=== PATIENT | male | born 1950 | race Caucasian/White ===

== ENCOUNTER 2020-06-02 16:56 | Inpatient (IN) | payer MEDICARE, MEDICAID, SELFPAY ==
[2020-06-02] VITALS (13 sets, daily range): BP systolic 131–157; BP diastolic 78–99; PULSE 65–78; RESP 13–24; TEMP 36.4–36.8; O2SAT 92–98; BMI 29.2
--- NOTE | ~2020-06-02 | XR_ITS ---
EXAMINATION: XR chest 1V INDICATION: Leukocytosis and chest pain TECHNIQUE: AP view of the chest is obtained. COMPARISON: None available FINDINGS: There are airspace opacities of the left midlung zone and lung bases. No pleural effusion o r pneumothorax is identified. The cardiomediastinal silhouette is normal. IMPRESSION: 1. Airspace opacities of the left midlung zone and lung bases, likely pneumonia. Radiographic follow- up to resolution is recommended. Reviewed, dictated and finalized at location A. IMPRESSION: 1. Airspace opacities of the left midlung zone and lung bases, likely pneumonia . Radiographic follow-up to resolution is recommended.
--- NOTE | ~2020-06-02 | US_ITS ---
EXAMINATION: US right upper quadrant DATE: 06/04/2020 14:31 INDICATION: Pulmonary liver function tests TECHNIQUE: Multiple grayscale and Doppler ultrasound images of the abdomen were obtained. COMPARISON: None available FINDINGS: The pancreas is obscured by bowel gas. The liver is normal with normal echogenicity and ech otexture. No surface nodularity. Normal hepatopetal flow in the main portal vein. A stone is present in the nondistended gallbladder. There is no gallbladder wall thickening or pericholecystic fluid. Th e normal common bile duct measures 4 mm. There was no sonographic De La Torre sign. IMPRESSION: 1. Cholelithiasis without evidence of cholecystitis. 2. No sonographic correlate for the patient's symptoms. Reviewed, dictated and finalized at location A.
--- NOTE | 2020-06-02 16:54 | PC.NURSE ---
PATIENT SITTER DEN REQUESTING PT IN [facility] STAT, UNABLE TO GET IN HOUSE EKG, FULL SET OF VS, BLOOD, BELONGINGS LIST, OR SEOND IV ESTABLISHED PRIOR TO DEPARTURE. RAJ HORN HAS NOT SEEN OR ASSESSED PT PRIOR TO DEPARTURE. STEAM CRANE OPERATOR AND RAJ HORN AWARE THAT PT IS DEPARTING TO [facility] AT THIS TIME. PT SHAVED BY EMS UNISHEAR OPERATOR. STEAM CRANE OPERATORALIYA LAZO AWARE OF SITUATION.
[2020-06-02] MEDS: AMIODARONE 150 MG/D5W 100 ML 150 MG/100 ML BAG 600 MG IV CONT (17:45)
--- NOTE | 2020-06-02 17:53 | ECG_ITS ---
Measurements Intervals [place] Rate: 75 P: 51 PA: 188 QRS: 48 QRSD: 101 T: 70 QT: 404 QTc: 453 Interpretive Statements SINUS RHYTHM LOW QRS VOLTAGE IN PRECORDIAL LEADS ANTEROSEPTAL ST ELEVATION MYOCARDIAL INFARCT- ACUTE ABNORMAL ECG Electronically Signed On 06-03-2020 13:46:12 CDT by Shane Vazquez D.O.
--- NOTE | 2020-06-02 17:59 | WPDCARDPROC ---
Cardiac Cath Procedure Note Date of procedure:: 06/02/20 Performing physician:: Souleymane Cummings MD Indication:: acute anterior wall myocardial infarction Brief clinical history:: this is a 69-year-old male without previous documented history of coronary disease who experienced severe acute chest this evening while at work. ECG upon arrival and EMS was obviously abnormal for acute anterior wall infarction. Upon arrival to the Emergency the patient is having severe chest pain being brought immediately to the cardiac catheterization lab for angiography and revascularization Procedure Procedure performed:: emergency coronary angiography emergency PCI with drug-eluting stent to the proximal LAD Sedation/Medication given:: no sedation Access site:: right femoral artery Estimated blood loss:: 20-30 cc Procedure note:: patient was cardiac emergency setting described above. Right femoral triangle was prepared draped in usual fashion. Anesthesia provided with 1% lidocaine infiltrated locally. Using the modified Seldinger technique common femoral artery was punctured and 6 vascular sheath was placed. After this I engage inject the right coronary artery using a 5 Setswana JR4 catheter. I then engage inject the left coronary artery using a 6 Setswana CLS 3 5 guiding catheter. Following this the patient received 180 mg of Brilinta and he was systemically anticoagulated with Angiomax bolus and IV infusion. The patient received aspirin in the emergency department. Following PCI as detailed below the sheath was sutured into position the patient was taken to the ICU for post KS PCI recovery. The procedure was complicated by several episodes of rapid pulseless ventricular tachycardia that occurred following buddhism of flow into the LAD. This required the DC cardioversion with 200 joules x4 times during this procedure. Because of this he was bolused with amiodarone intravenously, he received intravenous lidocaine 100 mg and also received intravenous metoprolol 5 mg P Findings:: central aortic pressure was 126/82 left main coronary artery is short nicely patent the LAD is 100% occluded just after its origin appearance of which is an abrupt thrombotic occlusion circumflex is a large caliber artery giving rise to the marginal branches and posterior branches it appears to be codominant. The circumflex is angiographically free of significant disease right coronary artery is medium in caliber and echo is codominant. The proximal segment of the right coronary artery has 70-80% long tubular atherosclerotic stenosis there is OUSMANE 3 flow in the RCA. The LAD was wired using a 0.014 BMW wire following anticoagulation and of a bolusing with Brilinta. The site of total occlusion was dilated with a 2.5 x 20 mm emerge balloon restoring OUSMANE 3 flow in the LAD. This revealed a guidewire was in a diagonal branch. The guidewire was then redirected down the LAD itself. Following this the patient developed the episodes of ventricular tachycardia that were mentioned above which were very rapid and pulseless. After this was successfully a treated with the medications described above the rhythm was once again stable and the target lesion was stented using the 3.0 x 22 mm [employer] drug-eluting stent. This was deployed at nominal pressure and was then post dilated to 16 atmospheres using a noncompliant balloon. At the end of the procedure the LAD was patent with OUSMANE [address] down to the apex there is a 90% stenosis at the very terminal portion of the LAD as it is very small down by the apex. There is OUSMANE 3 flow into these branches and this very tiny apical segment is felt to be angiographically far too small for PCI. Conclusion:: 1. Acute anterior wall myocardial infarction resulting from near ostial occlusion of the LAD 2. successful PCI of this target lesion using the drug-eluting stent described above with a nice anatomical result 3. high-grade stenos
[2020-06-02] MEDS: AMIODARONE 360 MG/D5W 200 ML 360 MG/200 ML BAG 33.3 MG IV CONT (18:00)
--- NOTE | 2020-06-02 18:00 | PM.IMHP ---
H&P: HPI History of Present Illness Chief complaint: stemi Narrative: Souleymane Haro is a 69 year old male without previous history of cardiac disease presents to the emergency with severe onset of crushing retrosternal chest pain occurring while he was at work late this afternoon. ECG was performed by EMS crew in the field and was obviously abnormal for evidence of acute anterior wall infarction. For this reason STEMI was activated and he is being seen in the cardiac catheterization lab as he is being prepared for emergency angiography. The patient reports a previous history of a CVA but no other medical problems specifically he denies any knowledge of hypertension diabetes or dyslipidemia. He is not a smoker. Review of Systems Review of Systems: Narrative: Systems review not obtained during this emergency ROS unobtainable: Yes unobtainable due to medical condition PMFSH Social History Social History Gender identity (if verbalized by the patient): Male Meds Home Medications and Allergies Home Medications Medication Instructions Recorded Confirmed Type aspirin 81 mg PO DAILY 06/02/20 History Allergies Allergy/AdvReac Type Severity Reaction Status Date / Time No Known Allergies Allergy Verified 06/02/20 17:03 Vital Signs Vital Signs - 24 hr 06/02/20 16:50 Temperature 36.4 C Exam Const: General: in distress and uncomfortable Other: patient in severe distress with 10/10 chest pain HENMT: Mouth: Yes moist mucous membranes Eyes: Sclera: sclerae normal Pupils: Equal, round and reactive pupils present Neck: Neck: supple Thyroid: thyroid normal Carotids: bruit Resp: Auscultation: clear to auscultation bilaterally Cardio: Rate: regular rate and tachycardic Rhythm: regular rhythm GI: Auscultation: normal bowel sounds Skin: General skin exam: normal color Neuro: Cognition (Neuro): normal cognition Extrem: General: normal to inspection Assessment and Plan Additional Plan 69-year-old white male with prior history of stroke details unknown to me presenting with acute anterior wall myocardial infarction being brought to the cardiac catheterization lab for emergency angiography in hopes of providing revascularization Souleymane Cummings MD [facility]
--- NOTE | 2020-06-02 18:43 | ED_ITS ---
HPI - Chest Pain General Chief Complaint: Chest Pain Stated Complaint: stemi History of Present Illness HPI narrative: Patient was having chest pain and a STEMI was called in the field the cardiac cath team was called and ready for him. He was only transferred from the ambulance table to our stretcher, when they were ready in the [employer] [facility] [employer] and he went up immediately. I saw his body but was unable to speak to him as they were going through the [place]. He was unable to get any additional information. I was unable to do a review of systems. I did not do a physical exam. His diagnosis was STEMI. He was admitted to the hospital. He was in critical condition. Related Data Home Medications Medication Instructions Recorded Confirmed aspirin 81 mg PO DAILY 06/02/20 Allergies Allergy/AdvReac Type Severity Reaction Status Date / Time No Known Allergies Allergy Verified 06/02/20 17:03 Review of Systems Review of Systems: Narrative: Unable to obtain a review of systems before he went to the [employer] [facility] [employer]. [facility] Past Medical History Medical History (Updated 06/02/20 @ 18:46 by Rossana Funez MD) Chest pain Social History Social History Smoking status: Never smoker Alcohol intake: never Substance use: never Gender identity (if verbalized by the patient): Female Sexual Orientation (if Verbalized by the Patient): Straight or Heterosexual Spiritual care concerns: No Exam Narrative: Exam Narrative: Visual exam was an uncomfortable patient on a stretcher. Course Consultations Consultation #1: Dr. Perez was called and he was ready in the [employer] to receive the patient as soon as he arrived. Date: 06/02/20 Time: 18:45 Vital Signs Vital signs: Vital Signs Temperature 97.6 F 06/02/20 16:50 Temperature 97.6 F 06/02/20 16:50 Discharge Plan Discharge Clinical Impression: ST elevation (STEMI) myocardial infarction Patient Disposition: Still a Patient Condition: Critical Interventions: IV Stop Time Documented Last Done: 06/02/20 17:05
[2020-06-02] MEDS: SODIUM CHLORIDE 0.9% IV 1,000 ML 125 ML IV CONT (19:00)
[2020-06-02 19:05] LABS: Basophils Absolute Auto 0.1 K/mm3 (0.0-0.1); Basophils Percent Auto 0.6 % (0.2-1.2); Eosinophils Absolute Auto 0.1 K/mm3 (0-0.3); Eosinophils Percent Auto 0.4 % (0-4.4); Hematocrit 45.1 % (42.0-52.0); Hemoglobin 15.6 g/dL (14.0-18.0); Immature Granulocyte Absolute 0.17 K/mm3 (0.00-0.031); Immature Granulocyte Percent A 0.8 % (0-0.5); Lymphocytes Absolute Auto 1.69 K/mm3 (0.9-3.2); Lymphocytes Percent Auto 8.1 % (18.3-44.2); Mean Corpuscular HGB Conc 34.6 g/dl (32-36); Mean Corpuscular Hemoglobin 28.5 pg (26-34); Mean Corpuscular Volume 82.4 fl (80-100); Mean Platelet Volume 9.5 fl (7.4-10.4); Monocytes Absolute Auto 0.8 K/mm3 (0.1-0.6); Neutrophils Percent Auto 86.1 % (45.5-73.1); Platelet Count Result 333 k/mm3 (150-375); Red Blood Count 5.47 M/mm3 (4.6-6.20); Red Cell Distribution Width 12.3 % (11.5-14.5); White Blood Count 20.9 K/mm3 (4.5-10.0)
[2020-06-02 19:15] LABS: Prothrombin Time 45.6 Seconds (11.1-14.7)
[2020-06-02 19:17] LABS: Partial Thromboplastin Time 120.3 SECONDS (22.3-36.8)
[2020-06-02 19:18] LABS: Alanine Aminotransferase 42 U/L (4-50); Albumin Level 3.7 g/dL (3.5-5.1); Alkaline Phosphatase 129 U/L (38-126); Anion Gap 16.5 mmol/L (7-16); Aspartate Amino Transferase 181 U/L (17-59); Bilirubin,Total 0.6 mg/dL (0.2-1.3); Blood Urea Nitrogen 18 mg/dL (9-20); Calcium 10.4 mg/dL (8.4-10.2); Carbon Dioxide 23 mmol/L (22-30); Chloride 99 mmol/L (98-107); Cholesterol 217 mg/dL (0-200); Estimated CRCL calculation 81 ml/min; Estimated Glomerular Filt Rate > 60; Glucose 468 mg/dL (75-110); HDL Direct 30 mg/dL; Potassium 4.5 mmol/L (3.4-5.0); Sodium 134 mmol/L (137-145); Triglycerides 179 mg/dL (<150)
[2020-06-02 19:29] LABS: LDL Cholesterol Direct 154 mg/dL
[2020-06-02] MEDS: NITROGLYCERIN SL 0.4 MG TABLET SUBLINGUAL ×3 (19:55→20:08)
[2020-06-02] MEDS: METOPROLOL TARTRATE 25 MG TABLET PO (20:00)
[2020-06-02] MEDS: INSULIN HUMAN REGULAR (*BKC) 100 UNITS/ML IV PUSH (22:10)
[2020-06-02] MEDS: NITROGLYCERIN OINTMENT 1 INCH DOSE TRANSDERM (22:10)
[2020-06-02] MEDS: AMIODARONE 360 MG/D5W 200 ML 360 MG/200 ML BAG 16.7 MG IV CONT (23:29)
[2020-06-02 23:55] LABS: Glucose Point of Care 445 (65-105)
[2020-06-02 23:57] LABS: Glucose Point of Care 467 (65-105)
[2020-06-03] VITALS (20 sets, daily range): BP systolic 92–134; BP diastolic 55–91; PULSE 56–68; RESP 12–27; TEMP 36.5–37.2; O2SAT 93–100
--- NOTE | 2020-06-03 | ECHO_ITS ---
Patient Info Name: Souleymane Haro Age: 69 years : 1950 Gender: Male Ht: 70 in Wt: 203 lbs BSA: 2.15 m2 HR: 63 bpm BP: 115 / 89 mmHg Heart Rhythm: Sinus Rhythm Technical Quality: Good Exam Date: 06/03/2020 11:18 AM Exam Location: [facility] Patient Status: Inpatient Admit Date: 06/02/2020 Staff Ordering Physician: Souleymane Cummings MD [employer] Bench Operator: Adam De La Torre RDCS, RT Attending Provider: Souleymane Cummings MD Referring Physician: Zoila JOHN; Exam Type: CA echo doppler color flow Study Info Indications I97.121 - Postprocedural cardiac arrest following other surgery Complete two-dimensional, color flow and Doppler transthoracic echocardiogram is performed. Summary 1. Left ventricular systolic function is severely reduced, estimated at 30-35%. 2. Left ventricular chamber dimension is normal. 3. The anterior wall and anteroseptal segments are akinetic. 4. The apex is dyskinetic. 5. There is moderate aortic valve sclerosis. 6. There is no aortic valve stenosis. Left Ventricle Left ventricular chamber dimension is normal. Left ventricular systolic function is severely reduced, estimated at 30-35%. The left ventricular diastolic function is grade I diastolic dysfunction. The anterior wall and anteroseptal segments are akinetic. The apex is dyskinetic. Right Ventricle Right ventricular chamber dimension is normal. Left Atria Left atrial chamber dimension is normal. Right Atria Right atrial chamber dimension is normal. Aortic Valve The aortic valve is trileaflet. There is moderate aortic valve sclerosis. There is no aortic valve stenosis. Pulmonic Valve The pulmonic valve is not well visualized. Mitral Valve The mitral valve has normal leaflets. Tricuspid Valve The tricuspid valve leaflets are normal. Pericardium/Pleural The pericardium appears normal. Aorta The aortic root size at the sinus of Valsalva is normal. Left Ventricular Outflow Tract Name Value Normal LVOT 2D LVOT Diameter 2.1 cm LVOT Doppler LVOT Peak Gradient 3 mmHg LVOT Mean Gradient 1 mmHg LVOT VTI 16 cm LVOT VTI/AV VTI Ratio 0.6 LVOT Stroke Volume 57 ml LVOT CO 3.5 l/min LVOT CI 1.6 l/min/m2 Mitral Valve Name Value Normal MV Doppler MV Decel Leake 311 cm/s2 MV PHT 60 ms MV Area (PHT) 3.6 cm2 4.0-5.0 MV Diastolic Function MV E Peak Velocity 65 cm/s MV A Peak Velocity 76 cm/s MV E
[2020-06-03 04:35] LABS: Hemoglobin 15.4 g/dL (14.0-18.0); Mean Corpuscular Hemoglobin 28.9 pg (26-34); Mean Corpuscular Volume 82.7 fl (80-100); Mean Platelet Volume 9.4 fl (7.4-10.4); Platelet Count Result 351 k/mm3 (150-375); Red Blood Count 5.32 M/mm3 (4.6-6.20); Red Cell Distribution Width 12.5 % (11.5-14.5); White Blood Count 23.3 K/mm3 (4.5-10.0)
[2020-06-03 04:46] LABS: Partial Thromboplastin Time 32.7 SECONDS (22.3-36.8)
[2020-06-03 04:49] LABS: Hemoglobin A1C 13.7 % (<5.7)
[2020-06-03 04:50] LABS: Anion Gap 15.5 mmol/L (7-16); Blood Urea Nitrogen 19 mg/dL (9-20); Carbon Dioxide 21 mmol/L (22-30); Chloride 102 mmol/L (98-107); Estimated CRCL calculation 91 ml/min; Estimated Glomerular Filt Rate > 60; Glucose 429 mg/dL (75-110); Potassium 4.5 mmol/L (3.4-5.0); Sodium 134 mmol/L (137-145)
[2020-06-03 05:04] LABS: INR 1.1; Prothrombin Time 13.9 Seconds (11.1-14.7)
--- NOTE | 2020-06-03 05:11 | ECG_ITS ---
Measurements Intervals [place] Rate: 59 P: 16 VA: 177 QRS: 49 QRSD: 103 T: 99 QT: 461 QTc: 460 Interpretive Statements SINUS BRADYCARDIA LOW QRS VOLTAGE IN LIMB LEADS EXTENSIVE ANTERIOR ST ELEVATION MYOCARDIAL INFARCT- ACUTE ABNORMAL ECG Electronically Signed On 06-03-2020 10:41:08 CDT by Shane Vazquez D.O.
[2020-06-03 05:45] LABS: Glucose Point of Care 488 (65-105)
[2020-06-03] MEDS: METOPROLOL TARTRATE 25 MG TABLET PO ×4 (05:52→23:25)
[2020-06-03] MEDS: NITROGLYCERIN OINTMENT 1 INCH DOSE TRANSDERM ×4 (05:53→23:25)
[2020-06-03] MEDS: TICAGRELOR 90 MG TABLET PO ×2 (05:53→17:25)
[2020-06-03] MEDS: MORPHINE SULFATE 2 MG/ML INJ IV PUSH (06:28)
--- NOTE | 2020-06-03 07:56 | WPDCNINT ---
Assessment and Plan Assessment and plan (1) ST elevation (STEMI) myocardial infarction: Qualifiers: Involved coronary artery: unspecified coronary artery Qualified Code(s): I21.3 - ST elevation (STEMI) myocardial infarction of unspecified site Code(s): I21.3 - ST elevation (STEMI) myocardial infarction of unspecified site Status: Acute Assessment and Plan: S/p cardiac cath with SATHYA x1 to LAD. Continue ASA, Brilinta, metoprolol, losartan, and statin. Pt developed VT secondary to reperfusion, now resolved - plan to D/C amiodarone after infusion is empty. (2) DM II (diabetes mellitus, type II), controlled: Code(s): E11.9 - Type 2 diabetes mellitus without complications Status: Acute Assessment and Plan: New diagnosis; Hgb A1c is 13.7. Continue insulin gtt for now, start NPH and can hopefully come off gtt later today. Not in DKA or HHS. (3) HLD (hyperlipidemia): Code(s): E78.5 - Hyperlipidemia, unspecified Status: Acute Assessment and Plan: Statin as above.\ Critical care time: 45 minutes. Environmental Management Specialist Consult Note Consult date: 06/03/20 Time Seen: 09:00 HPI: Souleymane Haro is a 69 year old male with no significant PMH who presented to the ED with chest pain and was found to have a STEMI. He was taken emergently to the engineer geophysical laboratory where he was found to have an LAD occlusion and received SATHYA x1. He also had a subtotal RCA lesion noted as well. During the case, he developed pulseless VT and was defibrillated x4 at 200J, had amiodarone gtt, and lidocaine given. He was admitted to the ICU for further management. He denies a prior history of DM, but was found to be hyperglycemic and had a Hgb A1c of 13.7. He currently denies chest pain or any other symptoms. Review of Systems Review of Systems: All systems reviewed & are unremarkable except as noted in HPI and below (HPI) [facility] Past Medical History Medical History (Updated 06/03/20 @ 12:29 by Yosi Fritz DO) Chest pain HLD (hyperlipidemia) Hyperlipidemia associated with type 2 diabetes mellitus Hypertension associated with diabetes Social History Social History Smoking status: Never smoker Alcohol intake: never Substance use: never Gender identity (if verbalized by the patient): Female Sexual Orientation (if Verbalized by the Patient): Straight or Heterosexual Spiritual care concerns: No Meds Home Medications and Allergies Home Medications Medication Instructions Recorded Confirmed Type aspirin 81 mg PO DAILY 06/02/20 06/02/20 History Allergies Allergy/AdvReac Type Severity Reaction Status Date / Time No Known Allergies Allergy Verified 06/02/20 17:03 Vital Signs Vital Signs - 24 hr 06/02/20 16:50 06/02/20 18:00 06/02/20 18:15 Temperature 36.4 C Pulse Rate 65 68 Respiratory Rate 24 H Blood Pressure 148/98 H Pulse Oximetry 97 06/02/20 18:38 06/02/20 19:08 06/02/20 19:38 Temperature 36.6 C Pulse Rate 66 75 74 Respiratory Rate 13 20 16 Blood Pressure 148/98 H 157/99 H 156/91 H Pulse Oximetry 94 95 92 06/02/20 20:00 06/02/20 21:00 06/02/20 22:00 Temperature 36.7 C Pulse Rate 74 75 78 Respiratory Rate 18 20 18 Blood Pressure 136/83 142/86 H 142/78 H Pulse Oximetry 92 95 98 06/02/20 22:25 06/02/20 23:29 06/02/20 23:45 Temperature 36.8 C Pulse Rate 78 72 75 Respiratory Rate 20 18 Blood Pressure 135/84 142/78 H Pulse Oximetry 96 06/02/20 23:57 06/03/20 00:00 06/03/20 00:12 Temperature Pulse Rate 68 68 64 Respiratory Rate 17 12 18 Blood Pressure 131/83 134/84 128/55 L Pulse Oximetry 95 99 99 06/03/20 00:42 06/03/20 02:00 06/03/20 04:00 Temperature 36.8 C Pulse Rate 64 65 65 Respiratory Rate 22 H 18 20 Blood Pressure 134/91 H 133/67 123/85 Pulse Oximetry 94 95 93 06/03/20 05:52 06/03/20 06:00 Temperature 37.2 C Pulse Rate 63 60 Respiratory Rate 22 H Blood Pressure 115/89 Pulse Oximetry 96 Exam
[2020-06-03] MEDS: INSULIN HUMAN REGULAR (*BKC) 100 UNITS in SODIUM CHLORIDE 0.9% IV 99 ML 6.1 UNITS IV CONT (08:25)
[2020-06-03] MEDS: INSULIN HUMAN REGULAR (*BKC) 100 UNITS/ML 9 UNITS IV PUSH (08:28)
[2020-06-03] MEDS: ASPIRIN 81 MG CHEWABLE TABLET PO (08:31)
[2020-06-03] MEDS: LOSARTAN POTASSIUM 12.5 MG TABLET PO ×2 (08:32→09:40)
[2020-06-03] MEDS: ROSUVASTATIN 10 MG TABLET 20 MG PO (08:32)
[2020-06-03 08:36] LABS: Glucose Point of Care 366 (65-105)
[2020-06-03] MEDS: SODIUM CHLORIDE 0.9% IV 1,000 ML 75 ML IV CONT (08:36)
--- NOTE | 2020-06-03 08:42 | PM.PNCARD ---
Progress Note: A&P Assessment and Plan (1) ST elevation (STEMI) myocardial infarction: Qualifiers: Involved coronary artery: unspecified coronary artery Qualified Code(s): I21.3 - ST elevation (STEMI) myocardial infarction of unspecified site Code(s): I21.3 - ST elevation (STEMI) myocardial infarction of unspecified site Status: Acute Assessment and Plan: status post PCI to the proximal LAD. Still residual disease within the RCA which will be intervened upon in a staged fashion. Currently feeling much better. Continue dual anti-platelet therapy. Continue statin, beta-nj. await echocardiogram. Continue nitroglycerin paste for now and likely transition to oral nitro tomorrow. 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 (2) Hypertension associated with diabetes: Code(s): E11.59 - Type 2 diabetes mellitus with other circulatory complications; I10 - Essential (primary) hypertension Status: Acute Assessment and Plan: Increase losartan up to 25 mg daily (3) Hyperlipidemia associated with type 2 diabetes mellitus: Code(s): E11.69 - Type 2 diabetes mellitus with other specified complication; E78.5 - Hyperlipidemia, unspecified Status: Acute Assessment and Plan: On statin. Starting insulin drip per public health educator (4) Chest pain: Code(s): R07.9 - Chest pain, unspecified Status: Acute Assessment and Plan: resolved Subjective Date/time seen: 06/03/20 08:42 Interval history: reason for admission: Acute coronary syndrome /STEMI Date of service 06/03/2020: He feels much better today. He did have some residual chest pain last night that improved with nitroglycerin. Nitroglycerin paste added. He denies any chest pain or shortness of breath at this point. No groin pain. Blood sugars are elevated and insulin drip is being started Review of Systems Review of Systems: All systems reviewed & are unremarkable except as noted in HPI and below Constitutional: Constitutional: Denies weakness Eyes: Eyes: Denies blurry vision ENT: Denies Normal hearing present Cardiovascular: Cardiovascular: Denies chest pain Respiratory: Respiratory: Denies dyspnea Gastrointestinal: Gastrointestinal: Denies abdominal pain Genitourinary: Genitourinary: Denies dysuria Musculoskeletal: Musculoskeletal: Denies back pain Integumentary/Breasts: Skin/Breast: Denies dry skin Neurologic: Denies headache(s) Psychiatric: Psychiatric: Denies anxiety Endocrine: Endocrine: Denies increase in ring/shoe/hat size and Denies palpitations Hematologic/Lymphatic: Hematologic/Lymphatic: Denies easy bleeding Allergic/Immunologic: Allergic/Immunologic: Denies lip swelling Exam Const: General: no acute distress HENMT: Mouth: Yes moist mucous membranes Eyes: Sclera: sclerae normal Neck: Neck: supple Carotids: bruit Resp: Auscultation: clear to auscultation bilaterally Cardio: Rate: regular rate Rhythm: regular rhythm Other: right groin is without hematoma or ecchymosis or bruit GI: Auscultation: normal bowel sounds Skin: General skin exam: normal color Neuro: Cranial nerves: Yes Equal, round and reactive pupils present Cognition (Neuro): normal cognition Speech: normal speech Extrem: General: normal to inspection Psych: Mental Status: mental status grossly normal Objective Data Vital Signs Vital Signs: Vital Signs - 24 hr 06/02/20 16:50 06/02/20 18:00 06/02/20 18:15 Temperature 36.4 C Pulse Rate 65 68 Respiratory Rate 24 H Blood Pressure 148/98 H Pulse Oximetry 97 06/02/20 18:38 06/02/20 19:08 06/02/20 19:38 Temperature 36.6 C Pulse Rate 66 75 74 Respiratory Rate 13 20 16 Blood Pressure 148/98 H 157/99 H 156/91 H Pulse Oximetry 94 95 92 06/02/20 20:00 06/02/20 21:00 06/02/20 22:00 Temperature 36.7 C Pu
[2020-06-03 09:59] LABS: Glucose Point of Care > 500 (65-105)
[2020-06-03 10:11] LABS: Add Urine Microscopic? YES; Appearance Urine Clear (Clear); Bilirubin Urine Negative (Negative); Blood Urine Negative (Negative); Color Urine Straw (Yellow); Glucose Urine UA 3+ mg/dL (Negative); Ketones Urine 1+ mg/dL (Negative); Leukocyte Esterase Ur Negative LEU/UL (NEGATIVE); Mucus Urine Rare /lpf; Nitrate Urine Negative (Negative); Protein Urine Negative (Negative); RBC Urine 0-2 /hpf (0-2); Urobilinogen Urine Negative mg/dL (<2.0); WBC Urine 0-3 /hpf (0-3)
[2020-06-03 10:12] LABS: Specific Grav Ur 1.055 (1.001-1.035)
[2020-06-03 11:10] LABS: Glucose Point of Care 268 (65-105)
[2020-06-03 12:23] LABS: Glucose Point of Care 183 (65-105)
[2020-06-03 13:23] LABS: Glucose Point of Care 133 (65-105)
[2020-06-03 13:54] LABS: Basophils Absolute Auto 0.1 K/mm3 (0.0-0.1); Basophils Percent Auto 0.5 % (0.2-1.2); Eosinophils Percent Auto 0.1 % (0-4.4); Hemoglobin 15.6 g/dL (14.0-18.0); Immature Granulocyte Absolute 0.21 K/mm3 (0.00-0.031); Immature Granulocyte Percent A 0.8 % (0-0.5); Lymphocytes Absolute Auto 1.92 K/mm3 (0.9-3.2); Lymphocytes Percent Auto 7.4 % (18.3-44.2); Mean Corpuscular HGB Conc 33.2 g/dl (32-36); Mean Corpuscular Hemoglobin 28.6 pg (26-34); Mean Corpuscular Volume 86.2 fl (80-100); Mean Platelet Volume 9.6 fl (7.4-10.4); Monocytes Absolute Auto 1.3 K/mm3 (0.1-0.6); Monocytes Percent Auto 5.1 % (2.6-8.5); Neutrophils Absolute Auto 22.4 K/mm3 (1.3-6.7); Neutrophils Percent Auto 86.1 % (45.5-73.1); Platelet Count Result 345 k/mm3 (150-375); Red Blood Count 5.45 M/mm3 (4.6-6.20); Red Cell Distribution Width 13.1 % (11.5-14.5)
[2020-06-03 14:05] LABS: Anion Gap 11.7 mmol/L (7-16); Blood Urea Nitrogen 21 mg/dL (9-20); Calcium 9.9 mg/dL (8.4-10.2); Carbon Dioxide 22 mmol/L (22-30); Chloride 104 mmol/L (98-107); Estimated CRCL calculation 91 ml/min; Estimated Glomerular Filt Rate > 60; Glucose 152 mg/dL (75-110); Potassium 3.7 mmol/L (3.4-5.0); Sodium 134 mmol/L (137-145)
[2020-06-03 17:06] LABS: Glucose Point of Care 311 (65-105)
[2020-06-03] MEDS: INSULIN ASPART (*BKC) 100 UNITS/ML SUB-Q (17:23)
[2020-06-03] MEDS: INSULIN HUMAN NPH (*BKC) 100 UNITS/ML 15 UNITS SUB-Q (17:24)
[2020-06-03 21:12] LABS: Glucose Point of Care 353 (65-105)
[2020-06-04] VITALS (15 sets, daily range): BP systolic 91–107; BP diastolic 51–74; PULSE 63–77; RESP 13–36; TEMP 36.4–36.8; O2SAT 94–100
[2020-06-04 04:09] LABS: Hematocrit 43.8 % (42.0-52.0); Hemoglobin 15.3 g/dL (14.0-18.0); Mean Corpuscular HGB Conc 34.9 g/dl (32-36); Mean Corpuscular Hemoglobin 29.4 pg (26-34); Mean Corpuscular Volume 84.2 fl (80-100); Mean Platelet Volume 9.7 fl (7.4-10.4); Platelet Count Result 299 k/mm3 (150-375); Red Cell Distribution Width 12.8 % (11.5-14.5); White Blood Count 31.1 K/mm3 (4.5-10.0)
[2020-06-04 04:36] LABS: Alanine Aminotransferase 77 U/L (4-50); Albumin Level 3.4 g/dL (3.5-5.1); Alkaline Phosphatase 88 U/L (38-126); Aspartate Amino Transferase 286 U/L (17-59); Bilirubin,Total 1.2 mg/dL (0.2-1.3); Blood Urea Nitrogen 23 mg/dL (9-20); Calcium 9.8 mg/dL (8.4-10.2); Carbon Dioxide 26 mmol/L (22-30); Chloride 99 mmol/L (98-107); Estimated CRCL calculation 81 ml/min; Estimated Glomerular Filt Rate > 60; Glucose 285 mg/dL (75-110); Magnesium 1.7 mg/dL (1.6-2.3); Sodium 132 mmol/L (137-145)
[2020-06-04] MEDS: NITROGLYCERIN OINTMENT 1 INCH DOSE TRANSDERM (06:32)
[2020-06-04] MEDS: METOPROLOL TARTRATE 25 MG TABLET PO ×3 (06:32→21:24)
[2020-06-04] MEDS: TICAGRELOR 90 MG TABLET PO ×2 (06:33→17:43)
--- NOTE | 2020-06-04 08:00 | ECG_ITS ---
Measurements Intervals [place] Rate: 66 P: 36 CA: 170 QRS: 66 QRSD: 102 T: 104 QT: 456 QTc: 478 Interpretive Statements SINUS RHYTHM LOW QRS VOLTAGE IN LIMB LEADS EXTENSIVE ANTERIOR INFARCT, PROBABLY RECENT BASELINE WANDER- II, III ABNORMAL ECG Electronically Signed On 06-04-2020 13:42:49 CDT by Shane Vazquez D.O.
[2020-06-04] MEDS: INSULIN HUMAN NPH (*BKC) 100 UNITS/ML 15 UNITS SUB-Q ×2 (08:14→17:40)
[2020-06-04] MEDS: ASPIRIN 81 MG CHEWABLE TABLET PO (08:14)
--- NOTE | 2020-06-04 08:14 | WPDINTPN ---
Progress Note: A&P Assessment and Plan (1) ST elevation (STEMI) myocardial infarction: Qualifiers: Involved coronary artery: unspecified coronary artery Qualified Code(s): I21.3 - ST elevation (STEMI) myocardial infarction of unspecified site Code(s): I21.3 - ST elevation (STEMI) myocardial infarction of unspecified site Status: Acute Assessment and Plan: S/p cardiac cath with SATHYA x1 to LAD on 06/02. Continue ASA, Brilinta, metoprolol, losartan, and statin. Pt developed VT secondary to reperfusion, now resolved and is off of amiodarone. (2) DM II (diabetes mellitus, type II), controlled: Code(s): E11.9 - Type 2 diabetes mellitus without complications Status: Acute Assessment and Plan: New diagnosis; Hgb A1c is 13.7. Now off of insulin gtt but remains hyperglycemic on NPH and SSI, will increase NPH dose. Not in DKA or HHS. (3) HLD (hyperlipidemia): Code(s): E78.5 - Hyperlipidemia, unspecified Status: Acute Assessment and Plan: Statin as above. (4) Leukocytosis: Code(s): D72.829 - Elevated white blood cell count, unspecified Status: Acute Assessment and Plan: WBC remains high and pt is afebrile. Suspect this is related to inflammation from STEMI. Will check procalcitonin but no clear infectious etiology is suspected. Critical care time: 35 minutes. (5) Elevated LFTs: Code(s): R79.89 - Other specified abnormal findings of blood chemistry Status: Acute Assessment and Plan: Hepatocellular pattern; initial LFTs on admission showed isolated AST elevation likely due to cardiac muscle injury, but now ALT is elevated as well. Check acute hepatitis panel and RUQ U/S. Subjective Date/time seen: 06/04/20 08:14 No acute events noted overnight. Pt denies any symptoms. Review of Systems Review of Systems: All systems reviewed & are unremarkable except as noted in HPI and below (HPI) Exam Const: General: no acute distress Eyes: General: appearance normal, both eyes and all related structures Resp: Auscultation: clear to auscultation bilaterally Cardio: Rate: regular rate Rhythm: regular rhythm Heart sounds: no murmurs Neuro: Speech: normal speech Motor exam (neuro): Normal motor muscle tone present throughout Extrem: General: normal to inspection Psych: Mental Status: mental status grossly normal Affect: normal affect Objective Data Vital Signs Vital Signs: Vital Signs - 24 hr 06/03/20 10:00 06/03/20 12:00 06/03/20 12:14 Temperature 36.6 C Pulse Rate 62 60 59 L Respiratory Rate 20 25 H Blood Pressure 109/78 101/68 101/68 Pulse Oximetry 94 96 06/03/20 12:17 06/03/20 14:00 06/03/20 16:00 Temperature Pulse Rate 62 60 59 L Respiratory Rate 25 H Blood Pressure 100/71 Pulse Oximetry 96 06/03/20 16:41 06/03/20 17:25 06/03/20 18:00 Temperature 36.9 C Pulse Rate 61 57 L 58 L Respiratory Rate 16 16 Blood Pressure 100/59 L 113/79 Pulse Oximetry 98 100 06/03/20 20:00 06/03/20 21:56 06/03/20 23:25 Temperature 36.8 C Pulse Rate 60 67 66 Respiratory Rate 27 H 17 Blood Pressure 92/78 L 92/78 L Pulse Oximetry 97 94 06/04/20 00:00 06/04/20 02:00 06/04/20 04:00 Temperature 36.8 C Pulse Rate 69 64 63 Respiratory Rate 27 H 18 18 Blood Pressure 102/63 92/58 L 96/57 L Pulse Oximetry 94 99 97 06/04/20 06:00 06/04/20 06:32 Temperature Pulse Rate 66 73 Respiratory Rate 13 Blood Pressure 93/51 L Pulse Oximetry 96 Intake/Output Intake/Output: Intake & Output 06/01/20 06/02/20 06/03/20 06/04/20 23:59 23:59 23:59 23:59 Intake Total 100 1970 240 Output Total 1999 Balance 100 -30 -260 Meds/Results Medications: Active Medications Generic Name Dose Route Start Last Admin Trade Name Freq PRN Reason Stop Dose Admin Hydrocodone Bitart/Acetaminophen 1 tab 06/02/20 17:53 [place] 5-325 Mg PO Q4-6H PRN Pain Rated 1-3 Aspirin 81 mg
[2020-06-04] MEDS: INSULIN ASPART (*BKC) 100 UNITS/ML SUB-Q ×2 (08:15→12:30)
[2020-06-04] MEDS: LOSARTAN POTASSIUM 25 MG TABLET PO (08:18)
[2020-06-04] MEDS: ROSUVASTATIN 10 MG TABLET 20 MG PO (08:18)
[2020-06-04 08:27] LABS: Glucose Point of Care 252 (65-105)
[2020-06-04 10:21] LABS: Hepatitis B Surface Antigen Negative (Negative)
[2020-06-04 10:26] LABS: HAV RESULT Negative (Negative); Hepatitis B Core IgM Result Negative (Negative)
[2020-06-04 10:37] LABS: Hepatitis C Virus Antibody Negative (Negative)
--- NOTE | 2020-06-04 10:40 | PM.PNCARD ---
Progress Note: A&P Assessment and Plan (1) ST elevation (STEMI) myocardial infarction: Qualifiers: Involved coronary artery: unspecified coronary artery Qualified Code(s): I21.3 - ST elevation (STEMI) myocardial infarction of unspecified site Code(s): I21.3 - ST elevation (STEMI) myocardial infarction of unspecified site Status: Acute Assessment and Plan: Complicated course/presentation, status post PCI to the proximal LAD. Residual disease within the RCA which will be staged in near future. Currently feeling much better. Continue dual anti-platelet therapy. Continue statin, beta-nj. Stop NTG paste, monitor BP. Initiate po Imdur 30mg daily if recurrent CP and as BP allows. Off Amiodarone. Transfer to telemetry bed today. Anticipate d/c in next 24-48 hours. (2) Hypertension associated with diabetes: Code(s): E11.59 - Type 2 diabetes mellitus with other circulatory complications; I10 - Essential (primary) hypertension Status: Acute Assessment and Plan: BP a little soft but tolerating current regimen. Monitor. (3) Hyperlipidemia associated with type 2 diabetes mellitus: Code(s): E11.69 - Type 2 diabetes mellitus with other specified complication; E78.5 - Hyperlipidemia, unspecified Status: Acute Assessment and Plan: On statin. Consult MEdicine service for their recommendations on DM management and at discharge. (4) Chest pain: Code(s): R07.9 - Chest pain, unspecified Status: Acute Assessment and Plan: resolved (5) Leukocytosis: Code(s): D72.829 - Elevated white blood cell count, unspecified Status: Acute Assessment and Plan: Further significant increase today, no evidence of infection. Consult medicine for work up/recommendations. (6) Elevated LFTs: Code(s): R79.89 - Other specified abnormal findings of blood chemistry Status: Acute Assessment and Plan: Abdominal ultrasound pending for evaluation per Critical Care. AST elevation partly due to acute myocardial infarction, ALT rising as well, no evidence of decompensated HF, but LV dysfunction present. Additional Plan 69-year-old white male with prior history of stroke details unknown to me presenting with acute anterior wall myocardial infarction being brought to the cardiac catheterization lab for emergency angiography in hopes of providing revascularization Souleymane Cummings MD LOCATED WITHIN [facility] Subjective Date/time seen: Date of service:06/04/20 10:40 Interval history: reason for admission/ Follow-up: Acute coronary syndrome /STEMI, ischemic cardiomyopathy He feels fairly well today. Sitting up in chair, eating, no nausea, vomiting, dizziness, chest pain or shortness of breath. No new issues overnight. Tolerating medications. No ventricular arrhythmias on telemetry. Review of Systems Review of Systems: All systems reviewed & are unremarkable except as noted in HPI and below ROS unobtainable: Yes unobtainable due to medical condition Constitutional: Constitutional: Denies headache(s) and Denies weakness Eyes: Eyes: Denies blurry vision ENT: Denies Normal hearing present, Denies headache(s) and Denies lip swelling Cardiovascular: Cardiovascular: Denies chest pain, Denies palpitations and Denies dyspnea Respiratory: Respiratory: Denies dyspnea Gastrointestinal: Gastrointestinal: Denies abdominal pain Genitourinary: Genitourinary: Denies dysuria Musculoskeletal: Musculoskeletal: Denies back pain Integumentary/Breasts: Skin/Breast: Denies dry skin Neurologic: Denies Normal hearing present, Denies headache(s) and Denies weakness Psychiatric: Psychiatric: Denies anxiety Endocrine: Endocrine: Denies increase in ring/shoe/hat size and Denies palpitations Hematologic/Lymphatic: Hematologic/Lymphatic: Denies easy bleeding Allergic/Immunologic: Allergic/Immunologic: Denies lip swelling Exam Const: General: no acute distr
[2020-06-04 12:14] LABS: Glucose Point of Care 267 (65-105)
--- NOTE | 2020-06-04 13:00 | PC.NURSE ---
This patient, Souleymane Haro, was received from ICU on 06/04/20 at 1440. Personal belongings list checked and signed. Patient/family oriented to unit policies and routines. Report received from ALIYA Courtney.
--- NOTE | 2020-06-04 13:13 | PC.NURSE ---
This patient, Souleymane Haro, was transferred to [facility] on 06/04/20 at 1257 via wheelchair. Personal belongings sent with patient. Belongings list checked and signed with receiving. Report given to ALIYA Stewart. Appropriate documentation sent with patient.
--- NOTE | 2020-06-04 17:00 | WPDCN ---
Assessment and Plan Assessment and plan (1) Coronary artery disease: Onset Date: ~05/2020 Qualifiers: Associated angina: with unspecified angina Coronary Disease-Associated Artery/Lesion type: [place] artery [place] vs. transplanted heart: [place] heart Qualified Code(s): I25.119 - Atherosclerotic heart disease of [place] coronary artery with unspecified angina pectoris Code(s): I25.10 - Atherosclerotic heart disease of [place] coronary artery without angina pectoris Status: Acute Assessment and Plan: STEMI on 06/02/2020, status post drug-eluting stent to the LAD. On dual anti platelet therapy, beta-nj, and statin per Cardiology. (2) Type 2 diabetes mellitus: Onset Date: ~05/2020 Qualifiers: Diabetes mellitus complication status: with hyperglycemia Diabetes mellitus intermediate manager insulin use: with shelter use Qualified Code(s): E11.65 - Type 2 diabetes mellitus with hyperglycemia; Z79.4 - long-term (current) use of insulin Code(s): E11.9 - Type 2 diabetes mellitus without complications Status: Acute Assessment and Plan: A new diagnosis with hemoglobin A1c of 13.7% on 06/02/2020. Started on NPH 15 units b.i.d. with 1st dose on 06/03/2020 at 17:24; will increase given hyperglycemia. On high-dose sliding scale in which he received 16 units of NovoLog over the past 24 hours. I am not certain why NPH was chosen, perhaps related to insurance issues, thus we will continue with this for now. Would benefit from an SGLT2 inhibitor, which is non formulary at this hospital. He needs to establish a primary care provider [facility] for follow-up. Will need to see the dietitian and clinical nurse educator as an outpatient as well. (3) Leukocytosis: Qualifiers: Leukocytosis type: unspecified Qualified Code(s): D72.829 - Elevated white blood cell count, unspecified Code(s): D72.829 - Elevated white blood cell count, unspecified Status: Acute Assessment and Plan: WBC was 20.9 on admission and has gradually increased to 31.1 today. No history to suggest underlying infection; possibly inflammatory response secondary to STEMI. Procalcitonin, blood cultures, urinalysis, chest x-ray pending for further evaluation. (4) Elevated LFTs: Code(s): R79.89 - Other specified abnormal findings of blood chemistry Status: Acute Assessment and Plan: Elevated AST was initially the only abnormality, secondary to cardiac injury from STEMI. ALT now elevated. May be mild shock liver stemming from ischemic cardiomyopathy and episode of pulseless V-tach. Though no complaints of abdominal pain, will obtain RUQ ultrasound given leukocytosis. Hepatitis panel negative. (5) Essential hypertension: Onset Date: ~05/2020 Code(s): I10 - Essential (primary) hypertension Status: Acute Assessment and Plan: Blood pressures were in the 140-150s systolic on arrival, but have improved with the addition of a beta-nj and ARB. On occasion the blood pressures have been soft, and will continue to monitor these closely. (6) Hyperlipidemia: Onset Date: ~05/2020 Code(s): E78.5 - Hyperlipidemia, unspecified Status: Acute Assessment and Plan: He has been started on rosuvastatin. Continue to monitor LFTs closely. (7) Ischemic cardiomyopathy: Onset Date: ~05/2020 Code(s): I25.5 - Ischemic cardiomyopathy Status: Acute Assessment and Plan: EF estimated at 30 to 35% echocardiogram on 06/03/2020. Monitor volume status closely w
--- NOTE | 2020-06-04 17:00 | P.CONS_ITS ---
Assessment and Plan Assessment and plan (1) Coronary artery disease: Onset Date: ~05/2020 Qualifiers: Associated angina: with unspecified angina Coronary Disease-Associated Artery/Lesion type: [place] artery [place] vs. transplanted heart: [place] heart Qualified Code(s): I25.119 - Atherosclerotic heart disease of [place] coronary artery with unspecified angina pectoris Code(s): I25.10 - Atherosclerotic heart disease of [place] coronary artery without angina pectoris Status: Acute Assessment and Plan: * STEMI on 06/02/2020, status post drug-eluting stent to the LAD. * On dual anti platelet therapy, beta-nj, and statin per Cardiology. (2) Type 2 diabetes mellitus: Onset Date: ~05/2020 Qualifiers: Diabetes mellitus complication status: with hyperglycemia Diabetes mellitus long-term insulin use: with long-term use Qualified Code(s): E11.65 - Type 2 diabetes mellitus with hyperglycemia; Z79.4 - terminologist (current) use of insulin Code(s): E11.9 - Type 2 diabetes mellitus without complications Status: Acute Assessment and Plan: * A new diagnosis with hemoglobin A1c of 13.7% on 06/02/2020. * Started on NPH 15 units b.i.d. with 1st dose on 06/03/2020 at 17:24; will increase given hyperglycemia. * On high-dose sliding scale in which he received 16 units of NovoLog over the past 24 hours. * I am not certain why NPH was chosen, perhaps related to insurance issues, thus we will continue with this for now. * Would benefit from an SGLT2 inhibitor, which is non formulary at this hospital. * He needs to establish a primary care provider [facility] for follow-up. * Will need to see the dietitian and asthma educator as an outpatient as well. (3) Leukocytosis: Qualifiers: Leukocytosis type: unspecified Qualified Code(s): D72.829 - Elevated white blood cell count, unspecified Code(s): D72.829 - Elevated white blood cell count, unspecified Status: Acute Assessment and Plan: * WBC was 20.9 on admission and has gradually increased to 31.1 today. * No history to suggest underlying infection; possibly inflammatory response secondary to STEMI. * Procalcitonin, blood cultures, urinalysis, chest x-ray pending for further evaluation. (4) Elevated LFTs: Code(s): R79.89 - Other specified abnormal findings of blood chemistry Status: Acute Assessment and Plan: * Elevated AST was initially the only abnormality, secondary to cardiac injury from STEMI. ALT now elevated. * May be mild shock liver stemming from ischemic cardiomyopathy and episode of pulseless V-tach. * Though no complaints of abdominal pain, will obtain RUQ ultrasound given leukocytosis. Hepatitis panel negative. (5) Essential hypertension: Onset Date: ~05/2020 Code(s): I10 - Essential (primary) hypertension Status: Acute Assessment and Plan: * Blood pressures were in the 140-150s systolic on arrival, but have improved with the addition of a beta-nj and ARB. * On occasion the blood pressures have been soft, and will continue to monitor these closely. (6) Hyperlipidemia: Onset Date: ~05/2020 Code(s): E78.5 - Hyperlipidemia, unspecified Status: Acute Asses
[2020-06-04 17:17] LABS: Glucose Point of Care 157 (65-105)
[2020-06-04 19:53] LABS: Add Urine Microscopic? YES; Amorphous Sediment Urine Few; Appearance Urine Clear (Clear); Bilirubin Urine Negative (Negative); Blood Urine Negative (Negative); Color Urine Yellow (Yellow); Glucose Urine UA 3+ mg/dL (Negative); Ketones Urine Trace mg/dL (Negative); Leukocyte Esterase Ur Negative LEU/UL (Negative); Mucus Urine Few /lpf; Nitrate Urine Negative (Negative); Protein Urine 2+ mg/dL (Negative); RBC Urine 0-2 /hpf (0-2); Urobilinogen Urine Negative mg/dL (<2.0); WBC Urine 0-3 /hpf
[2020-06-04 20:04] LABS: Specific Grav Ur 1.031 (1.001-1.035)
[2020-06-04 21:40] LABS: Glucose Point of Care 231 (65-105)
[2020-06-05] VITALS (13 sets, daily range): BP systolic 90–110; BP diastolic 55–73; PULSE 63–72; RESP 16–20; TEMP 36.3–36.9; O2SAT 96–99
[2020-06-05] MEDS: TICAGRELOR 90 MG TABLET PO ×2 (05:28→17:40)
[2020-06-05 06:47] LABS: Basophils Percent Auto 0.2 % (0.2-1.2); Eosinophils Absolute Auto 0.1 K/mm3 (0-0.3); Eosinophils Percent Auto 0.5 % (0-4.4); Hematocrit 41.2 % (42.0-52.0); Hemoglobin 14.3 g/dL (14.0-18.0); Immature Granulocyte Absolute 0.16 K/mm3 (0.00-0.031); Immature Granulocyte Percent A 0.8 % (0-0.5); Lymphocytes Absolute Auto 2.01 K/mm3 (0.9-3.2); Lymphocytes Percent Auto 10.2 % (18.3-44.2); Mean Corpuscular HGB Conc 34.7 g/dl (32-36); Mean Corpuscular Hemoglobin 28.9 pg (26-34); Mean Corpuscular Volume 83.4 fl (80-100); Mean Platelet Volume 9.8 fl (7.4-10.4); Monocytes Absolute Auto 1.6 K/mm3 (0.1-0.6); Monocytes Percent Auto 8.2 % (2.6-8.5); Neutrophils Absolute Auto 15.8 K/mm3 (1.3-6.7); Neutrophils Percent Auto 80.1 % (45.5-73.1); Platelet Count Result 255 k/mm3 (150-375); Red Blood Count 4.94 M/mm3 (4.6-6.20); Red Cell Distribution Width 12.5 % (11.5-14.5); White Blood Count 19.8 K/mm3 (4.5-10.0)
[2020-06-05 06:54] LABS: INR 1.1; Prothrombin Time 14.1 Seconds (11.1-14.7)
[2020-06-05 06:55] LABS: Partial Thromboplastin Time 34.7 SECONDS (22.3-36.8)
[2020-06-05 07:06] LABS: Alanine Aminotransferase 59 U/L (4-50); Albumin Level 3.1 g/dL (3.5-5.1); Alkaline Phosphatase 84 U/L (38-126); Anion Gap 10.3 mmol/L (7-16); Aspartate Amino Transferase 102 U/L (17-59); Bilirubin,Total 0.8 mg/dL (0.2-1.3); Blood Urea Nitrogen 23 mg/dL (9-20); Calcium 9.8 mg/dL (8.4-10.2); Carbon Dioxide 26 mmol/L (22-30); Chloride 98 mmol/L (98-107); Estimated CRCL calculation 81 ml/min; Estimated Glomerular Filt Rate > 60; Glucose 127 mg/dL (75-110); Magnesium 1.7 mg/dL (1.6-2.3); Potassium 3.3 mmol/L (3.4-5.0); Sodium 131 mmol/L (137-145)
[2020-06-05 07:44] LABS: Glucose Point of Care 129 (65-105)
[2020-06-05] MEDS: INSULIN HUMAN NPH (*BKC) 100 UNITS/ML 12 UNITS SUB-Q ×2 (08:17→16:48)
[2020-06-05] MEDS: ASPIRIN 81 MG CHEWABLE TABLET PO (08:19)
[2020-06-05] MEDS: POTASSIUM CHLORIDE 20 MEQ PACKET (FOR LIQUID) 40 MEQ PO (08:39)
[2020-06-05] MEDS: ROSUVASTATIN 10 MG TABLET 20 MG PO (08:40)
[2020-06-05] MEDS: LOSARTAN POTASSIUM 25 MG TABLET PO (08:41)
[2020-06-05] MEDS: METOPROLOL TARTRATE 25 MG TABLET PO ×2 (08:41→20:47)
[2020-06-05 11:30] LABS: Glucose Point of Care 237 (65-105)
[2020-06-05] MEDS: INSULIN ASPART (*BKC) 100 UNITS/ML SUB-Q (11:34)
--- NOTE | 2020-06-05 12:28 | PM.PNCARD ---
Progress Note: A&P Assessment and Plan (1) ST elevation (STEMI) myocardial infarction: Onset Date: 06/02/20 Qualifiers: Involved coronary artery: unspecified coronary artery Qualified Code(s): I21.3 - ST elevation (STEMI) myocardial infarction of unspecified site Code(s): I21.3 - ST elevation (STEMI) myocardial infarction of unspecified site Status: Acute Assessment and Plan: Complicated course/presentation, status post PCI to the proximal LAD. Residual disease within the RCA which will be staged in near future. Currently feeling much better. Continue dual anti-platelet therapy. Continue statin, beta-nj. Off Amiodarone. IDeally, transition to Toprol XL 25mg daily but continue current regimen and monitor BP for now. Transfer to telemetry bed today. Anticipate d/c in next 24-48 hours. Due to pneumonia and intravenous antibiotics discharge will be deferred today. Reassess tomorrow morning. PT/OT. nutrition and diabetic Education tomorrow. DVT prophylaxis. (2) Hypertension associated with diabetes: Code(s): E11.59 - Type 2 diabetes mellitus with other circulatory complications; I10 - Essential (primary) hypertension Status: Acute Assessment and Plan: BP a little soft but tolerating current regimen. Monitor. (3) Hyperlipidemia associated with type 2 diabetes mellitus: Code(s): E11.69 - Type 2 diabetes mellitus with other specified complication; E78.5 - Hyperlipidemia, unspecified Status: Acute Assessment and Plan: On statin. Consult MEdicine service for their recommendations on DM management and at discharge. (4) Chest pain: Code(s): R07.9 - Chest pain, unspecified Status: Acute Assessment and Plan: resolved (5) Leukocytosis: Qualifiers: Leukocytosis type: unspecified Qualified Code(s): D72.829 - Elevated white blood cell count, unspecified Code(s): D72.829 - Elevated white blood cell count, unspecified Status: Acute Assessment and Plan: white blood cell count improving. Chest x-ray suggestive in pneumonia, clinically, however, exam nor symptoms are highly consistent. Intravenous ceftriaxone initiated by Medicine. Defer to their recommendations. (6) Elevated LFTs: Code(s): R79.89 - Other specified abnormal findings of blood chemistry Status: Acute Assessment and Plan: Abdominal ultrasound Unremarkable. AST and ALT improving. (7) Ischemic cardiomyopathy: Onset Date: ~05/2020 Code(s): I25.5 - Ischemic cardiomyopathy Status: Acute Assessment and Plan: Compensated, no acute issue. As above. Continue medical therapy. (8) Pneumonia: Code(s): J18.9 - Pneumonia, unspecified organism Status: Acute Assessment and Plan: Intravenous ceftriaxone. Transition to oral at discharge. Will assess response tomorrow morning. Subjective Date/time seen: Date of service:06/05/20 12:28 Interval history: reason for admission/ Follow-up: Acute coronary syndrome /STEMI, ischemic cardiomyopathy He feels fine today. occasional cough, nonproductive. No nausea, vomiting, chest pain or shortness of breath. Started on intravenous ceftriaxone for chest x-ray suggestive of pneumonia. No fevers, chills. Blood pressure soft overnight, metoprolol changed to twice daily. Tolerating medications. No ventricular arrhythmias on telemetry. Review of Systems Review of Systems: All systems reviewed & are unremarkable except as noted in HPI and below ROS unobtainable: Yes unobtainable due to medical condition Constitutional: Constitutional: Denies headache(s) and Denies weakness Eyes: Eyes: Denies blurry vision ENT: Denies Normal hearing present, Denies headache(s) and Denies lip swelling Cardiovascular: Cardiovascular: Denies chest pain, Denies palpitations and Denies dyspnea Respiratory: Respiratory: Denies dyspnea Gastrointest
--- NOTE | 2020-06-05 13:47 | P.PNIM_ITS ---
Progress Note: A&P Assessment and Plan (1) Coronary artery disease: Onset Date: ~05/2020 Qualifiers: Coronary Disease-Associated Artery/Lesion type: [place] artery [place] vs. transplanted heart: [place] heart Associated angina: with unspecified angina Qualified Code(s): I25.119 - Atherosclerotic heart disease of [place] coronary artery with unspecified angina pectoris Code(s): I25.10 - Atherosclerotic heart disease of [place] coronary artery without angina pectoris Status: Acute Assessment and Plan: The patient had an acute STEMI on 06/02/2020, status post drug-eluting stent to the LAD. * Cardiology is the admitting and have him on dual anti platelet therapy, beta-nj, and statin * He denies any chest pain, shortness of breath, VELA or any other complaints at this time. (2) Pneumonia: Code(s): J18.9 - Pneumonia, unspecified organism Status: Acute Assessment and Plan: The patient was found to have pneumonia and is most likely the cause of his leukocytosis. He was started on IV antibiotics and his leukocytosis slightly improved today. * He denies any associated symptoms of pneumonia at this time * Pneumococcal and Legionella urine antigen have been sent and are pending. will continue IV antibiotics and trending his leukocytosis and monitoring his vital signs. (3) Leukocytosis: Qualifiers: Leukocytosis type: unspecified Qualified Code(s): D72.829 - Elevated white blood cell count, unspecified Code(s): D72.829 - Elevated white blood cell count, unspecified Status: Acute Assessment and Plan: * WBC was 20.9 on admission and has gradually increased to 31.1 yesterday. * CXR showed left lower lobe pneumonia and he was started on IV Ceftriaxone and Doxycycline. * Blood cultures, Procalcitonin are pending. Urinalysis is normal. Continue IV antiboitics for pneumonia and trend leukocytosis. (4) Type 2 diabetes mellitus: Onset Date: ~05/2020 Qualifiers: Diabetes mellitus skilled nursing insulin use: with intermediate accountant use Diabetes mellitus complication status: with hyperglycemia Qualified Code(s): E11.65 - Type 2 diabetes mellitus with hyperglycemia; Z79.4 - long-term (current) use of insulin Code(s): E11.9 - Type 2 diabetes mellitus without complications Status: Acute Assessment and Plan: * A new diagnosis of diabetes with hemoglobin A1c of 13.7% on 06/02/2020. * Started on NPH 12 units b.i.d. with 1st dose on 06/03/2020 * I am not certain why NPH was chosen, perhaps related to insurance issues, thus we will continue with this for now. * Would benefit from an SGLT2 inhibitor, which is non formulary at this hospital. * He needs to establish a primary care provider [facility] for follow-up. * Will need to see the dietitian and alarm service technician as an outpatient as well. (5) Elevated LFTs: Code(s): R79.89 - Other specified abnormal findings of blood chemistry Status: Acute Assessment and Plan: * Elevated AST was initially the only abnormality, secondary to cardiac injury from STEMI. * AST an ALT improved today to 102/59. * Right upper quadrant abdominal ultrasound shows cholelithiasis without evidence of cholecystitis otherwise normal. * May be mild shock liver stemming from ischemic cardiomyopathy and episode of pulseless V
--- NOTE | 2020-06-05 13:47 | PM.IMPN ---
Progress Note: A&P Assessment and Plan (1) Coronary artery disease: Onset Date: ~05/2020 Qualifiers: Coronary Disease-Associated Artery/Lesion type: [place] artery [place] vs. transplanted heart: [place] heart Associated angina: with unspecified angina Qualified Code(s): I25.119 - Atherosclerotic heart disease of [place] coronary artery with unspecified angina pectoris Code(s): I25.10 - Atherosclerotic heart disease of [place] coronary artery without angina pectoris Status: Acute Assessment and Plan: The patient had an acute STEMI on 06/02/2020, status post drug-eluting stent to the LAD. Cardiology is the admitting and have him on dual anti platelet therapy, beta-nj, and statin He denies any chest pain, shortness of breath, VELA or any other complaints at this time. (2) Pneumonia: Code(s): J18.9 - Pneumonia, unspecified organism Status: Acute Assessment and Plan: The patient was found to have pneumonia and is most likely the cause of his leukocytosis. He was started on IV antibiotics and his leukocytosis slightly improved today. He denies any associated symptoms of pneumonia at this time Pneumococcal and Legionella urine antigen have been sent and are pending. will continue IV antibiotics and trending his leukocytosis and monitoring his vital signs. (3) Leukocytosis: Qualifiers: Leukocytosis type: unspecified Qualified Code(s): D72.829 - Elevated white blood cell count, unspecified Code(s): D72.829 - Elevated white blood cell count, unspecified Status: Acute Assessment and Plan: WBC was 20.9 on admission and has gradually increased to 31.1 yesterday. CXR showed left lower lobe pneumonia and he was started on IV Ceftriaxone and Doxycycline. Blood cultures, Procalcitonin are pending. Urinalysis is normal. Continue IV antiboitics for pneumonia and trend leukocytosis. (4) Type 2 diabetes mellitus: Onset Date: ~05/2020 Qualifiers: Diabetes mellitus prison insulin use: with prison use Diabetes mellitus complication status: with hyperglycemia Qualified Code(s): E11.65 - Type 2 diabetes mellitus with hyperglycemia; Z79.4 - retirement (current) use of insulin Code(s): E11.9 - Type 2 diabetes mellitus without complications Status: Acute Assessment and Plan: A new diagnosis of diabetes with hemoglobin A1c of 13.7% on 06/02/2020. Started on NPH 12 units b.i.d. with 1st dose on 06/03/2020 I am not certain why NPH was chosen, perhaps related to insurance issues, thus we will continue with this for now. Would benefit from an SGLT2 inhibitor, which is non formulary at this hospital. He needs to establish a primary care provider [facility] for follow-up. Will need to see the dietitian and booth usher as an outpatient as well. (5) Elevated LFTs: Code(s): R79.89 - Other specified abnormal findings of blood chemistry Status: Acute Assessment and Plan: Elevated AST was initially the only abnormality, secondary to cardiac injury from STEMI. AST an ALT improved today to 102/59. Right upper quadrant abdominal ultrasound shows cholelithiasis without evidence of cholecystitis otherwise normal. May be mild shock liver stemming from ischemic cardiomyopathy and episode of pulseless V-tach. Hepatitis panel negative. Continue trending LFTs. Patient denies any abdominal pain or issues at this time. (6) Essential hypertension: Onset Date: ~05/2020 Code(s): I10 - Essential (primary) hypertension Status: Acute Assessment and Plan: Blood pressures were in the 140-150
[2020-06-05 16:46] LABS: Glucose Point of Care 187 (65-105)
[2020-06-05 21:00] LABS: Glucose Point of Care 206 (65-105)
[2020-06-06] VITALS (9 sets, daily range): BP systolic 96–116; BP diastolic 58–63; PULSE 58–78; RESP 18–20; TEMP 36.1–36.3; O2SAT 95–98; BMI 30.4
[2020-06-06 05:51] LABS: Basophils Absolute Auto 0.1 K/mm3 (0.0-0.1); Basophils Percent Auto 0.4 % (0.2-1.2); Eosinophils Absolute Auto 0.2 K/mm3 (0-0.3); Eosinophils Percent Auto 1.3 % (0-4.4); Hematocrit 40.1 % (42.0-52.0); Hemoglobin 13.6 g/dL (14.0-18.0); Immature Granulocyte Absolute 0.18 K/mm3 (0.00-0.031); Immature Granulocyte Percent A 1.2 % (0-0.5); Lymphocytes Absolute Auto 2.02 K/mm3 (0.9-3.2); Lymphocytes Percent Auto 13.2 % (18.3-44.2); Mean Corpuscular HGB Conc 33.9 g/dl (32-36); Mean Corpuscular Hemoglobin 28.5 pg (26-34); Mean Corpuscular Volume 84.1 fl (80-100); Mean Platelet Volume 10.5 fl (7.4-10.4); Monocytes Absolute Auto 1.4 K/mm3 (0.1-0.6); Monocytes Percent Auto 9.1 % (2.6-8.5); Neutrophils Absolute Auto 11.5 K/mm3 (1.3-6.7); Neutrophils Percent Auto 74.8 % (45.5-73.1); Platelet Count Result 254 k/mm3 (150-375); Red Blood Count 4.77 M/mm3 (4.6-6.20); Red Cell Distribution Width 12.4 % (11.5-14.5); White Blood Count 15.3 K/mm3 (4.5-10.0)
[2020-06-06 06:12] LABS: Anion Gap 10.5 mmol/L (7-16); Blood Urea Nitrogen 25 mg/dL (9-20); Carbon Dioxide 24 mmol/L (22-30); Chloride 100 mmol/L (98-107); Estimated CRCL calculation 81 ml/min; Potassium 3.5 mmol/L (3.4-5.0); Sodium 131 mmol/L (137-145)
[2020-06-06 06:13] LABS: Calcium 9.7 mg/dL (8.4-10.2); Estimated Glomerular Filt Rate > 60; Glucose 155 mg/dL (75-110)
[2020-06-06] MEDS: TICAGRELOR 90 MG TABLET PO (06:13)
[2020-06-06] MEDS: INSULIN HUMAN NPH (*BKC) 100 UNITS/ML 12 UNITS SUB-Q (07:21)
[2020-06-06 07:32] LABS: Glucose Point of Care 171 (65-105)
[2020-06-06 07:59] LABS: Magnesium 1.8 mg/dL (1.6-2.3)
[2020-06-06] MEDS: LOSARTAN POTASSIUM 25 MG TABLET PO (09:17)
[2020-06-06] MEDS: ROSUVASTATIN 10 MG TABLET 20 MG PO (09:17)
[2020-06-06] MEDS: ASPIRIN 81 MG CHEWABLE TABLET PO (09:17)
[2020-06-06] MEDS: METOPROLOL TARTRATE 25 MG TABLET PO (09:17)
--- NOTE | 2020-06-06 10:58 | P.PNIM_ITS ---
Progress Note: A&P Assessment and Plan (1) Pneumonia: Code(s): J18.9 - Pneumonia, unspecified organism Status: Acute Assessment and Plan: The patient was found to have pneumonia and is most likely the cause of his leukocytosis. Could have been secondary to aspiration when he went into pulseless Vtach and required defibrillation vs community acquired pneumonia since he came in with a leukocytosis of 20,000. He was started on IV antibiotics. * His leukocytosis improved from 31,000 to 15,000 today. * He denies any associated symptoms of pneumonia at this time * Pneumococcal and Legionella urine antigen have been sent and are pending. * I feel at this time with his leukocytosis trending down, he is otherwise asymptomatic and normal vital signs he is stable from a medical standpoint to be discharged to continue Doxycycline and Cefdinir for 5 more days. Probiotics will also be given to prevent diarrhea from antibiotic use. (2) Coronary artery disease: Onset Date: ~05/2020 Qualifiers: Associated angina: with unspecified angina Coronary Disease-Associated Artery/Lesion type: [place] artery [place] vs. transplanted heart: [place] heart Qualified Code(s): I25.119 - Atherosclerotic heart disease of [place] coronary artery with unspecified angina pectoris Code(s): I25.10 - Atherosclerotic heart disease of [place] coronary artery without angina pectoris Status: Acute Assessment and Plan: The patient had an acute STEMI on 06/02/2020, status post drug-eluting stent to the LAD. * Cardiology is the admitting and have him on dual anti platelet therapy, beta-jn, and statin * He denies any chest pain, shortness of breath, VELA or any other complaints at this time. (3) Leukocytosis: Qualifiers: Leukocytosis type: unspecified Qualified Code(s): D72.829 - Elevated white blood cell count, unspecified Code(s): D72.829 - Elevated white blood cell count, unspecified Status: Acute Assessment and Plan: * WBC improved from 31,000 to 15,000 over the last two days after starting antibiotics. * CXR showed left lower lobe pneumonia and he was started on IV Ceftriaxone and Doxycycline. * Procalcitonin are pending. * Urinalysis is normal. * Continue antibiotics as an outpatient. (4) Type 2 diabetes mellitus: Onset Date: ~05/2020 Qualifiers: Diabetes mellitus complication status: with hyperglycemia Diabetes mellitus exterminator termite insulin use: with exterminator termite use Qualified Code(s): E11.65 - Type 2 diabetes mellitus with hyperglycemia; Z79.4 - continuous churn buttermaker (current) use of insulin Code(s): E11.9 - Type 2 diabetes mellitus without complications Status: Acute Assessment and Plan: * A new diagnosis of diabetes with hemoglobin A1c of 13.7% on 06/02/2020. * I talked with the Operations Analyst who states the patients Leila is covered under his insurance and so he will be able to take medication only once daily. * Education on insulin has been given and he will be discharged with a glucometer and test strips/lancets and needles. * He will also be discharged on Metformin 500 mg BID. * Instructed to find a PCP and follow up within 1 week for further evaluation. * The patient understands and agrees with the plan. All questions answered. (5) Elevated LFTs: Code(s):
--- NOTE | 2020-06-06 10:58 | PM.IMPN ---
Progress Note: A&P Assessment and Plan (1) Pneumonia: Code(s): J18.9 - Pneumonia, unspecified organism Status: Acute Assessment and Plan: The patient was found to have pneumonia and is most likely the cause of his leukocytosis. Could have been secondary to aspiration when he went into pulseless Vtach and required defibrillation vs community acquired pneumonia since he came in with a leukocytosis of 20,000. He was started on IV antibiotics. His leukocytosis improved from 31,000 to 15,000 today. He denies any associated symptoms of pneumonia at this time Pneumococcal and Legionella urine antigen have been sent and are pending. I feel at this time with his leukocytosis trending down, he is otherwise asymptomatic and normal vital signs he is stable from a medical standpoint to be discharged to continue Doxycycline and Cefdinir for 5 more days. Probiotics will also be given to prevent diarrhea from antibiotic use. (2) Coronary artery disease: Onset Date: ~05/2020 Qualifiers: Associated angina: with unspecified angina Coronary Disease-Associated Artery/Lesion type: [place] artery [place] vs. transplanted heart: [place] heart Qualified Code(s): I25.119 - Atherosclerotic heart disease of [place] coronary artery with unspecified angina pectoris Code(s): I25.10 - Atherosclerotic heart disease of [place] coronary artery without angina pectoris Status: Acute Assessment and Plan: The patient had an acute STEMI on 06/02/2020, status post drug-eluting stent to the LAD. Cardiology is the admitting and have him on dual anti platelet therapy, beta-nj, and statin He denies any chest pain, shortness of breath, VELA or any other complaints at this time. (3) Leukocytosis: Qualifiers: Leukocytosis type: unspecified Qualified Code(s): D72.829 - Elevated white blood cell count, unspecified Code(s): D72.829 - Elevated white blood cell count, unspecified Status: Acute Assessment and Plan: WBC improved from 31,000 to 15,000 over the last two days after starting antibiotics. CXR showed left lower lobe pneumonia and he was started on IV Ceftriaxone and Doxycycline. Procalcitonin are pending. Urinalysis is normal. Continue antibiotics as an outpatient. (4) Type 2 diabetes mellitus: Onset Date: ~05/2020 Qualifiers: Diabetes mellitus complication status: with hyperglycemia Diabetes mellitus termite helper insulin use: with usp use Qualified Code(s): E11.65 - Type 2 diabetes mellitus with hyperglycemia; Z79.4 - meterman (current) use of insulin Code(s): E11.9 - Type 2 diabetes mellitus without complications Status: Acute Assessment and Plan: A new diagnosis of diabetes with hemoglobin A1c of 13.7% on 06/02/2020. I talked with the Materials Recycler who states the patients Leila is covered under his insurance and so he will be able to take medication only once daily. Education on insulin has been given and he will be discharged with a glucometer and test strips/lancets and needles. He will also be discharged on Metformin 500 mg BID. Instructed to find a PCP and follow up within 1 week for further evaluation. The patient understands and agrees with the plan. All questions answered. (5) Elevated LFTs: Code(s): R79.89 - Other specified abnormal findings of blood chemistry Status: Acute Assessment and Plan: Elevated AST was initially the only abnormality, secondary to cardiac injury from STEMI. AST an ALT improved today to 102/59. Right upper quadrant abdominal ultrasound shows cholelithiasis without evidence of cholecystitis otherwise normal.
[2020-06-06 11:42] LABS: Glucose Point of Care 228 (65-105)
[2020-06-06] MEDS: INSULIN ASPART (*BKC) 100 UNITS/ML SUB-Q (11:48)
--- NOTE | 2020-06-06 13:38 | PM.DS ---
DS: Admitting Diagnosis Admitting Diagnosis Admitting Diagnosis: ST elevation (STEMI) myocardial infarction of unspecified site DS: Discharge Diagnosis Discharge Diagnosis (1) ST elevation (STEMI) myocardial infarction: Onset Date: 06/02/20 Qualifiers: Involved coronary artery: unspecified coronary artery Qualified Code(s): I21.3 - ST elevation (STEMI) myocardial infarction of unspecified site Code(s): I21.3 - ST elevation (STEMI) myocardial infarction of unspecified site Status: Acute Assessment and Plan: Complicated course/presentation, status post PCI to the proximal LAD. Residual disease within the RCA which will be staged in near future. Continue aspirin, rosuvastatin, Brilinta, losartan aAnd Metoprolol tartrate (2) Hypertension associated with diabetes: Code(s): E11.59 - Type 2 diabetes mellitus with other circulatory complications; I10 - Essential (primary) hypertension Status: Acute Assessment and Plan: BP a little soft. Asymptomatic (3) Hyperlipidemia associated with type 2 diabetes mellitus: Code(s): E11.69 - Type 2 diabetes mellitus with other specified complication; E78.5 - Hyperlipidemia, unspecified Status: Acute Assessment and Plan: Continue rosuvastatin. (4) Chest pain: Code(s): R07.9 - Chest pain, unspecified Status: Acute Assessment and Plan: Resolved (5) Leukocytosis: Qualifiers: Leukocytosis type: unspecified Qualified Code(s): D72.829 - Elevated white blood cell count, unspecified Code(s): D72.829 - Elevated white blood cell count, unspecified Status: Acute Assessment and Plan: White blood cell count improving. Chest x-ray suggestive in pneumonia, clinically, however, exam nor symptoms are highly consistent. Intravenous ceftriaxone initiated by Hospitalist service. Transitioned to p.o. at discharge. (6) Elevated LFTs: Code(s): R79.89 - Other specified abnormal findings of blood chemistry Status: Acute Assessment and Plan: Abdominal ultrasound unremarkable. AST and ALT improving. Will follow as an outpatient. (7) Ischemic cardiomyopathy: Onset Date: ~05/2020 Code(s): I25.5 - Ischemic cardiomyopathy Status: Acute Assessment and Plan: Compensated, no acute issue. Medications as above (8) Pneumonia: Code(s): J18.9 - Pneumonia, unspecified organism Status: Acute Assessment and Plan: As above DS: Summary Hospital Course Reason for hospitalization: ST-elevation myocardial infarction Hospital Course: 69 year old male without previous history of cardiac disease presented to the emergency with severe onset of crushing retrosternal chest pain occurring while he was at work on 06/02/2020. ECG was performed by EMS crew in the field and was obviously abnormal for evidence of acute anterior wall infarction. For this reason STEMI was activated and he was Taken emergently to the cardiac catheterization lab for emergency angiography. He reported a previous history of a CVA but no other medical problems specifically he denied any knowledge of hypertension diabetes or dyslipidemia. He is not a smoker. Findings were significant for: Acute anterior wall myocardial infarction resulting from near ostial occlusion of the LAD. High-grade stenosis in the terminal apical portion of the LAD which does not appear to be amenable to PCI because of its extremely small size. Reperfusion arrhythmias with rapid fast pulseless VT which required cardioversion 4 times and was treated also with antiarrhythmic agents including amiodarone , lidocaine and beta-nj. He proceeded on to success
--- NOTE | 2020-06-07 08:57 | PCCCNOTE ---
On 06/07/20, the student, [Alicia López ], provided care and completed [email or web address] this patient. I have reviewed the student's documentation and agree with the findings.
[2020-06-08 17:45] LABS: Pneumococcal Antigen Urine Not Detected (Not Detected)
[2020-06-09 18:31] LABS: Procalcitonin <0.10 ng/mL (<0.10)
[2020-06-09 21:24] LABS: Legionella pneumophila Ag Ur Not Detected (Not Detected)
== END 2020-06-06 15:53 | disposition home or self-care (01) | DRG 246 ==
LOC: ANHED 17:03 → ANHICU 17:05 → ANH2MED 06-04 13:07
PROVIDERS: Internal Medicine; Internal Medicine Cardiovascular Disease; Internal Medicine Critical Care Medicine; Nurse Practitioner Adult Health; Physician Assistant; Admitting Provider Specialist; Emergency Provider Emergency Medicine; Visit Provider Specialist
PROC: 4A023N7 Measurement of Cardiac Sampling and Pressure, Left Heart, Percutaneous Approach (ICD-10-PCS; CPT 93452; principal; 2020-06-02 17:05)
PROC: 4A023N7 Measurement of Cardiac Sampling and Pressure, Left Heart, Percutaneous Approach (ICD-10-PCS; 2020-06-02 17:05)
DX: I21.09 ST elevation (STEMI) myocardial infarction involving other coronary artery of anterior wall (principal); J18.9 Pneumonia, unspecified organism; I47.2 Ventricular tachycardia; I25.10 Atherosclerotic heart disease of native coronary artery without angina pectoris; E78.5 Hyperlipidemia, unspecified; I10 Essential (primary) hypertension; E11.65 Type 2 diabetes mellitus with hyperglycemia; I25.5 Ischemic cardiomyopathy
CPT/HCPCS: 36415; 71045; 76705; 80048; 80053; 80061; 80074; 81001; 83036; 83735; 84145; 84484; 85025; 85027; 85610; 85730; 86850; 86900; 86901; 87070; 87205; 87449; 87899; 93005; 93306; 93458; 94762; 96374; 97161; 97165; 99285; A9270; C1725; C1769; C1874; C1887; C1894; C9606; J0282; J0583; J0696; J1815; J2001; J2270; J7030

== ENCOUNTER 2020-06-23 10:54 | Outpatient (CLI) | payer MEDICARE, MEDICAID, SELFPAY ==
[2020-06-23 11:39] LABS: Alanine Aminotransferase 24 U/L (4-50); Albumin Level 3.7 g/dL (3.5-5.1); Alkaline Phosphatase 67 U/L (38-126); Anion Gap 8 mmol/L (8-16); Aspartate Amino Transferase 27 U/L (17-59); Bilirubin,Total 0.6 mg/dL (0.2-1.3); Blood Urea Nitrogen 18 mg/dL (9-20); Calcium 10.4 mg/dL (8.4-10.2); Carbon Dioxide 24 mmol/L (22-30); Chloride 104 mmol/L (98-107); Estimated Glomerular Filt Rate > 60; Glucose 165 mg/dL (75-110); Potassium 4.2 mmol/L (3.4-5.0); Sodium 136 mmol/L (137-145)
== END 2020-06-23 10:55 | disposition home or self-care (01) ==
LOC: ANHLAB 11:00
PROVIDERS: PCP Internal Medicine; Visit Provider Nurse Practitioner Adult Health
DX: I25.10 Atherosclerotic heart disease of native coronary artery without angina pectoris (principal)
CPT/HCPCS: 36415; 80053

== ENCOUNTER 2020-07-04 00:42 | Outpatient (CLI) | payer MEDICARE, MEDICAID, SELFPAY ==
[2020-07-04 19:34] LABS: SARS-CoV-2 RNA PCR Negative
== END 2020-07-04 00:43 | disposition home or self-care (01) ==
LOC: ANHCOVIDDT 00:42
PROVIDERS: PCP Internal Medicine; Visit Provider Specialist
DX: Z01.812 Encounter for preprocedural laboratory examination (principal); Z20.828 Contact with and (suspected) exposure to other viral communicable diseases
CPT/HCPCS: 87635; C9803; U0003

== ENCOUNTER 2020-07-06 01:45 | Day surgery (SDC) | payer MEDICARE, MEDICAID, SELFPAY ==
[2020-07-05 10:38] VITALS: BMI 28.8
[2020-07-06] VITALS (24 sets, daily range): BP systolic 96–153; BP diastolic 59–90; PULSE 55–92; RESP 14–19; TEMP 36.4–37; O2SAT 96–100
[2020-07-06 07:27] LABS: Basophils Absolute Auto 0.1 K/mm3 (0.0-0.1); Basophils Percent Auto 0.9 % (0.2-1.2); Eosinophils Absolute Auto 0.3 K/mm3 (0-0.3); Eosinophils Percent Auto 2.6 % (0-4.4); Hematocrit 43.7 % (42.0-52.0); Hemoglobin 14.7 g/dL (14.0-18.0); Immature Granulocyte Absolute 0.03 K/mm3 (0.00-0.031); Immature Granulocyte Percent A 0.3 % (0-0.5); Lymphocytes Absolute Auto 2.19 K/mm3 (0.9-3.2); Lymphocytes Percent Auto 19.9 % (18.3-44.2); Mean Corpuscular HGB Conc 33.6 g/dl (32-36); Mean Corpuscular Hemoglobin 28.4 pg (26-34); Mean Corpuscular Volume 84.4 fl (80-100); Mean Platelet Volume 9.6 fl (7.4-10.4); Monocytes Absolute Auto 0.9 K/mm3 (0.1-0.6); Monocytes Percent Auto 8.5 % (2.6-8.5); Neutrophils Absolute Auto 7.4 K/mm3 (1.3-6.7); Neutrophils Percent Auto 67.8 % (45.5-73.1); Platelet Count Result 257 k/mm3 (150-375); Red Blood Count 5.18 M/mm3 (4.6-6.20)
[2020-07-06 07:45] LABS: Anion Gap 7 mmol/L (8-16); Blood Urea Nitrogen 18 mg/dL (9-20); Calcium 10.3 mg/dL (8.4-10.2); Carbon Dioxide 24 mmol/L (22-30); Chloride 106 mmol/L (98-107); Estimated CRCL calculation 65 ml/min; Estimated Glomerular Filt Rate > 60; Glucose 133 mg/dL (75-110); Sodium 137 mmol/L (137-145)
[2020-07-06 07:48] LABS: INR 1.1; Prothrombin Time 14.2 Seconds (11.1-14.7)
[2020-07-06 07:52] LABS: Potassium 4.1 mmol/L (3.4-5.0)
--- NOTE | 2020-07-06 08:38 | SUR.PREOP ---
0700-pt presents to the [facility] for an LHC with PCI. Pt had a STEMI on 06/02/2020 and is here to intervene on another artery. Questions answered and verbalized understanding. Consent signed. AOx4. PIV started and labs obtained and sent per order. Moderate right pedal pulse and faint left pedal pulses noted. Will continue to monitor.
--- NOTE | 2020-07-06 08:41 | WPDMODSED ---
Moderate Sedation Note-Pt Data Patient Data Diagnosis: coronary artery disease with elective planned PCI to the right coronary artery recent anterior wall WI with emergency LAD PCI 1 month ago Present Complaint: no complaints this morning Procedure to be performed/Plan: elective staged right coronary PCI Allergies Allergy/AdvReac Type Severity Reaction Status Date / Time No Known Allergies Allergy Verified 06/23/20 16:11 Home Medications Medication Instructions Recorded Confirmed Type aspirin 81 mg PO DAILY 06/02/20 07/05/20 History losartan 25 mg PO DAILY #30 tablet 06/03/20 07/05/20 Rx rosuvastatin 20 mg PO DAILY #30 tablet 06/03/20 07/05/20 Rx ticagrelor [Brilinta] 90 mg PO Q12H #60 tablet 06/03/20 07/05/20 Rx Saccharomyces boulardii [Florastor] 250 mg PO BID 8 Days #16 cap 06/06/20 07/05/20 Rx blood sugar diagnostic [OneTouch #100 each 06/06/20 Rx Verio test strips] cefdinir 300 mg PO Q12H 5 Days #10 cap 06/06/20 07/05/20 Rx doxycycline hyclate 100 mg PO BID 5 Days #10 cap 06/06/20 07/05/20 Rx insulin glargine [Lantus Solostar 24 unit SUB-Q QPM 30 Days #7.2 ml 06/06/20 07/05/20 Rx U-100 Insulin] lancets [OneTouch Delica Lancets] #100 each 06/06/20 Rx metformin 500 mg PO BID 30 Days #60 tablet 06/06/20 07/05/20 Rx pen needle, diabetic [1st Tier #100 each 06/06/20 Rx Unifine Pentips Plus] metoprolol tartrate 12.5 mg PO BID 07/05/20 07/05/20 History Current Medications: Active Medications Sodium Chloride (Normal Saline Iv) 500 mls @ 100 mls/hr IV CONT .Q5H ROMIE Sedation/Anesthesia: No previous sedation/anesthesia problems (including family history). [facility] Past Medical History Medical History (System 06/23/20 @ 16:11 by Dhara Belcher) Coronary artery disease (~05/2020) Drug-eluting stent to LAD on 06/02/2020. Subtotal RCA lesion noted on the same cath. Essential hypertension (~05/2020) Gout Hyperlipidemia (~05/2020) Ischemic cardiomyopathy (~05/2020) Echocardiogram on 06/03/2020: 1. Severely reduced left ventricular systolic function, EF estimated at 30-35%. 2. Normal left ventricular chamber dimension. 3. Akinetic anterior wall and anteroseptal segments. 4. [place] is dyskinetic. 5. Moderate aortic valve sclerosis. 6. No aortic valve stenosis. ST elevation (STEMI) myocardial infarction (06/02/20) Occluded LAD, status post drug-eluting stent. Type 2 diabetes mellitus (~05/2020) Hemoglobin A1c was 13.7% on 06/03/2020. Surgical History Surgical History (System 06/23/20 @ 16:11 by Dhara Belcher) History of coronary artery stent placement (06/02/20) Drug-eluting stent to an occluded LAD on 06/02/[address] Cummings. Family History Family History (System 06/23/20 @ 16:11 by Dhara Belcher) Father Lung cancer Sibling Sarcoma Social History Social History (System 06/23/20 @ 16:11 by Dhara Belcher) Social History: The patient lives in his own home in [place]. 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 He is a lifelong nonsmoker and denies alcohol and drug abuse. He designates his 85-year-old mother as his surrogate decision maker and he wishes to be a full code. Smoking status: Never smoker Second hand tobacco smoke exposure: No Alcohol intake: never Substance use: never Substance use type: does not use Living arrangements: alone Gender identity (if verbalized by the patient): Male Spiritual care concerns: No Mod Sed Physical Exam Physical Exam Pre Procedural Exam: Normal: Appearance, Nose, Neck, Throat, Airway, Lungs, Heart Size, Heart Rate, Heart Rhythm, Neuro Exam and Extremities Hours since solid foods: 12 Hours since liquid intake: 12 Internal Medicine - PN: Obj Da Vital Signs Vital Signs: Vital Signs - 24 hr 07/06/20 07:30 Temperature 37.0 C Pulse Rate 67 Respiratory Rate 18 Blood Pressure 118/88 Pulse Oximetry 100 Meds/Results Medications: Active Medications Generic Name Dose Route Start Last Admin
[2020-07-06] MEDS: EPTIFIBATIDE 0.75 MG/ML 75 MG/100 ML VIAL 14.6 MG IV CONT ×3 (09:33→22:18)
--- NOTE | 2020-07-06 10:13 | ECG_ITS ---
Measurements Intervals [place] Rate: 63 P: 51 WV: 199 QRS: 54 QRSD: 110 T: 127 QT: 497 QTc: 510 Interpretive Statements SINUS RHYTHM INCOMPLETE RIGHT BUNDLE BRANCH BLOCK MINIMAL Q WAVES- INFERIOR LEADS EXTENSIVE ANTERIOR INFARCT, PROBABLY RECENT ABNORMAL ECG Electronically Signed On 07-06-2020 11:18:52 CDT by Shane Vazquez D.O.
--- NOTE | 2020-07-06 10:21 | WPDCARDPROC ---
Cardiac Cath Procedure Note Date of procedure:: 07/06/20 Performing physician:: Souleymane Cummings MD Indication:: coronary artery disease with known RCA disease and recent anterior wall infarction with recent LAD intervention. Scheduled for staged PCI of RCA Brief clinical history:: this is a 69-year-old man found to have coronary disease last month when he presented with an acute anterior wall infarction. He underwent emergency PCI with stenting of the proximal LAD. Angiography at that time demonstrated a long area of high-grade stenosis in the proximal right coronary artery. PCI of that area of disease at the time of the emergency was felt to be improved and he is admitted today for follow-up angiography and scheduled staged RCA intervention. Procedure Procedure performed:: Follow-up left and right coronary angiography repeat PCI to LAD involving extraction thrombectomy, PTCA, additional stenting and intravascular ultrasound staged PCI to right coronary artery involving PTCA and stenting Sedation/Medication given:: fentanyl 50 mg Versed 2 mg case start time 8:59 a.m. case end time 10:05 a.m. sedation provided by Nava Bush RN, trained observer Access site:: right femoral artery Estimated blood loss:: 20-30 cc Procedure note:: patient was brought to the cardiac catheterization lab in the postabsorptive state the right femoral triangle was prepared and draped usual fashion. Anesthesia was provided with 1% lidocaine infiltrated locally. Using the modified Seldinger technique a 6 [place] sheath was placed into the femoral artery after this I used a 5 [place] JL4 catheter to engage inject the left coronary artery. Following this additional PCI of the left coronary was found to be necessary. The patient underwent extraction thrombectomy, additional PTCA, additional stenting and intravascular ultrasound of the LAD. Following this the proximal RCA was treated interventionally with PTCA and stenting as detailed below. The patient received intravenous Angiomax bolus and infusion for procedural anticoagulation he received a bolus and infusion of intravenous Integrilin. He has been on aspirin and Brilinta chronically and did not therefore receive any additional anti-platelet therapy. The procedure was then terminated the sheath was sutured into position the patient was taken to the holding area in stable condition there were no signs of any procedural complications and he had no evidence of a groin hematoma upon leaving the maintenance shop laborer. Findings:: Hemodynamics: Central aortic pressure was 1 22/82. The left main coronary is widely patent. The LAD is a moderate caliber artery the visible stent in the proximal segment is visible. There is an intraluminal filling defect consistent with a thrombus in the distal aspect of the stent. Following this the mid LAD has a 80-90% stenosis in a discrete fashion. Despite this there is [place] 3 flow in the vessel. The right coronary was medium in caliber with 80% stenosis from the ostium down to the 2nd portion of the vessel. There is [place] 3 flow in this vessel. The right coronary terminates in the RPDA essentially a codominant vessel. The LAD was initially gauged with a 6 [place] CLS 3.5 guiding catheter and wired with a 0.014 BMW wire. The visible thrombus was treated with the export thrombectomy catheter. The thrombus was improved in appearance but not totally resolved. There was a new area of significant disease 80-90% in the midportion of the LAD distal to the original stent. Intracoronary nitroglycerin was given to ensure this was not spasm the lesion persisted and therefore was treated next. This lesion was dilated with a 3 by 20 mm emerge balloon which resulted in patency but a focal dissection flap. This was then treated with the 3 x 22 mm [place] drug-eluting stent resulting in an excellent anatomical appearance. Following this IVUS was performed of the proximal stent. The s
--- NOTE | 2020-07-06 16:00 | ADMGEN ---
This patient, Souleymane Haro, was admitted to [facility]. Patient/family oriented to hospital policies and general routines including ID bracelet, bed and alarms, visiting hours, pain management, procedures, bathroom and other care routines, personal items, smoking policy, room service/diet, and visiting hours. Valuables list has been completed. Information on how to activate the Rapid Response Team has been discussed. Patient/Family are encouraged to report perceived risks to care and to ask questions if they do not understand what they are told or what they should do.
[2020-07-06] MEDS: TICAGRELOR 90 MG TABLET PO (21:12)
[2020-07-07] VITALS (7 sets, daily range): BP systolic 116–123; BP diastolic 74–77; PULSE 69–85; RESP 16–17; TEMP 36.7–37.4; O2SAT 98–99
--- NOTE | 2020-07-07 08:52 | PM.DS ---
DS: Admitting Diagnosis Admitting Diagnosis Admitting Diagnosis: CAD DS: Discharge Diagnosis Discharge Diagnosis (1) Coronary artery disease: Onset Date: ~05/2020 Qualifiers: Coronary Disease-Associated Artery/Lesion type: [place] artery [place] vs. transplanted heart: [place] heart Associated angina: with unspecified angina Qualified Code(s): I25.119 - Atherosclerotic heart disease of [place] coronary artery with unspecified angina pectoris Code(s): I25.10 - Atherosclerotic heart disease of [place] coronary artery without angina pectoris Status: Acute (2) Status post insertion of drug eluting coronary artery stent: Code(s): Z95.5 - Presence of coronary angioplasty implant and graft Status: Acute DS: Summary Hospital Course Reason for hospitalization: Recent anterior TN treated with a drug-eluting stent to the Left anterior descending, with residual RCA disease. Patient was admitted for elective RCA stent. Hospital Course: The patient was admitted for elective RCA stenting. Initial angiography of the Left anterior descending revealed a thrombus in the LAD In the stent, and a significant lesion distal to the stent which is treated with extraction thrombectomy, PTCA, additional stenting ( 3 mm x 22 mm Orsiro SATHYA) of the Left anterior descending and intravascular ultrasound by Dr. Cummings with good results. There is no visible thrombus dissection of distal embolization. The long high-grade proximal RCA lesion was stented with a 3.0 x 26 mm Orsiro drug-eluting stent with nice results. the patient was given Integrilin overnight. He was up and ambulating the following day with no angina. He had some ecchymosis of the right groin site but no hematoma, good femoral pulse with no bruit and good distal pulses. I reviewed post discharge instructions with the patient including the need for dual anti-platelet therapy with no missing doses (Which could result in stent thrombosis and TN), and when to call or go to the emergency room if he should have any anginal chest pain. He has a follow-up appointment with Dr. Cummings or nurse practitioner on August 04 at 10:30 a.m.. No medication changes were made. Status at Discharge Functional status at discharge: independent ambulation Time Spent with Patient Time attestation: Total time spent providing and/or coordinating discharge services: 40 minutes Time spent: Greater than 30 minutes Exam Const: General: comfortable and no acute distress HENMT: Mouth: Yes moist mucous membranes Eyes: EOM: EOMs intact bilaterally Neck: Neck: supple Resp: Effort & Inspection: normal respiratory effort Auscultation: clear to auscultation bilaterally Cardio: Rhythm: regular rhythm Heart sounds: no murmurs Other: femoral pulse intact, no bruit. Some ecchymosis of the upper thigh noted. Pedal pulses on the right were intact. Skin: General skin exam: normal color Neuro: Motor exam (neuro): 5/5 motor strength present throughout and Normal motor muscle tone present throughout Extrem: General: no pedal edema Psych: Mental Status: mental status grossly normal Affect: normal affect DS: Data Data Completed and Pending Completed studies during hospitalization: Cardiac catheterization EKG on July 06 on my personal review showed an old anterior TN with T-wave inversion from V2 through V 6, 1 and L. Pending studies at discharge: none Labs on day of discharge: 07/06/2020 hemoglobin 15, potassium 4.1, creatinine 1.0 Procedures/Treatments: cardiac catheterization thrombectomy and additional stenting of the Left anterior descending drug-eluting stent to the RCA Discharge Plan Discharge Patient Disposition: Home, Self-Care Discharge Instructions: [facility] with Dr. Cummings is on August 04 at 10:30 a.m.. Please arrive 15 minutes prior to the appointment for registration. No driving, for 2-3 days, until the car
[2020-07-07] MEDS: TICAGRELOR 90 MG TABLET PO (09:47)
[2020-07-07] MEDS: ASPIRIN 81 MG CHEWABLE TABLET PO (09:47)
--- NOTE | 2020-07-07 11:21 | PC.NURSE ---
1110 d/c instructions reviewed with patient and pts son, questions answered, iv d/c'd, cath intact, pressure applied, pt escorted to main entrance lobby via wheelchair where his son drove him home in private vehicle.
== END 2020-07-07 11:15 | disposition home or self-care (01) ==
LOC: ANHCATHLAB 06:59 → ANHCPC 16:13
PROVIDERS: PCP Internal Medicine; Visit Provider Specialist
PROC: (CPT 93454; principal; 2020-07-06 08:30)
PROC: (CPT 92973; 2020-07-06 08:30)
DX: I25.10 Atherosclerotic heart disease of native coronary artery without angina pectoris (principal); T82.867A Thrombosis due to cardiac prosthetic devices, implants and grafts, initial encounter; I69.354 Hemiplegia and hemiparesis following cerebral infarction affecting left non-dominant side; E11.9 Type 2 diabetes mellitus without complications; Z95.5 Presence of coronary angioplasty implant and graft; I25.2 Old myocardial infarction
CPT/HCPCS: 36415; 80048; 85025; 85610; 92973; 92978; 93005; 93454; A9270; C1725; C1753; C1757; C1769; C1874; C1887; C1894; C9600; J0461; J0583; J1327; J1644; J2250; J3010; J7040

== ENCOUNTER 2021-02-19 19:21 | Observation (INO) | payer MEDICARE, MEDICAID, SELFPAY ==
--- NOTE | ~2021-02-19 | CT_ITS ---
EXAMINATION: CT abdomen pelvis w con INDICATION: Mid abdominal pain TECHNIQUE: Computed tomographic images of the abdomen and pelvis were obtained after the administrati on of 100 cc of Omnipaque 350 intravenous contrast. The dose-length product (DLP) was 1346.39 mGy-cm. Automated exposure control and iterative reconstruction technique were employed. COMPARISON: None available FINDINGS: Minimal dependent atelectasis is present in the lung bases. The heart size is normal. Coron nona artery stents are noted. Subendocardial fat deposition in the left ventricular apex is consistent with prior myocardial infarction. The liver, pancreas, and adrenal glands are normal. There is a sma ll sliding hiatal hernia. Punctate calcifications in an otherwise normal spleen likely represent heal ed granulomatous disease. A stone is present in the nondistended gallbladder. There is marked distent ion of the urinary bladder. There is mild bilateral hydroureteronephrosis, likely related to bladder distention. There is a 1.3 cm cyst of the left kidney. The prostate is enlarged. There is an umbilica l hernia containing a short segment of nonobstructed small bowel. There is mild inflammatory change s urrounding the hernia in the anterior abdominal wall. No pathologically enlarged abdominal or pelvic lymph nodes are identified. There is no free intraperitoneal gas or evidence of bowel obstruction. Th ere is moderate lumbar spondylosis. IMPRESSION: 1. Marked distention of the urinary bladder with mild bilateral hydroureteronephrosis, likely related to bladder distention. 2. Umbilical hernia containing a short segment of nonobstructed small bowel with mild inflammatory ch suzi in the subcutaneous tissue surrounding the hernia. 3. Cholelithiasis without evidence of cholecystitis. Reviewed, dictated and finalized at location A. IMPRESSION: 1. Marked distention of the urinary bladder with mild bilateral hydroureteronep hrosis, likely related to bladder distention. 2. Umbilical hernia containing a short segment of nonobstructed small bowel wit h mild inflammatory change in the subcutaneous tissue surrounding the hernia. 3. Cholelithiasis without evidence of cholecystitis.
[2021-02-19 19:35] VITALS: BP 172/90; PULSE 91; RESP 20; TEMP 36.3; O2SAT 98
--- NOTE | 2021-02-19 19:48 | ED.ABDPAIN ---
HPI - Abdominal Pain General Chief Complaint: Abdominal Pain Stated Complaint: stomach ache. Time Seen by Provider: 02/19/21 19:39 Source: RN notes reviewed History of Present Illness HPI narrative: Patient presents to emergency department from home for abdominal pain. Patient states symptoms began yesterday. Pain is located in the lower abdomen and radiates into the groin described as sharp and stabbing associate with nausea vomiting patient denies any fevers or chills chest pain shortness of breath diarrhea or any other symptoms states he took Aleve at home with minimal relief Related Data Home Medications Medication Instructions Recorded Confirmed aspirin 81 mg PO DAILY 06/02/20 11/21/20 metoprolol tartrate 12.5 mg PO BID 07/05/20 11/21/20 lancets 33 gauge each 07/11/20 11/21/20 Allergies Allergy/AdvReac Type Severity Reaction Status Date / Time No Known Allergies Allergy Verified 02/19/21 19:38 Review of Systems Review of Systems: Narrative: Gen.: Denies fevers or chills ENT: Denies congestion Respiratory: Denies shortness of breath or cough CV: Denies chest pain or palpitations GI: See HPI denies burning, urgency, frequency or hematuria Musculoskeletal: Denies back pain or muscle pain Neuro: Denies numbness, tingling, weakness or focal weakness Skin: Denies rash Except as documented, all other systems reviewed and negative PMFSH Past Medical History Medical History Coronary artery disease (~05/2020) Drug-eluting stent to LAD on 06/02/2020. Subtotal RCA lesion noted on the same cath. Essential hypertension (~05/2020) Gout Gout Hyperlipidemia (~05/2020) Ischemic cardiomyopathy (~05/2020) Echocardiogram on 06/03/2020: 1. Severely reduced left ventricular systolic function, EF estimated at 30-35%. 2. Normal left ventricular chamber dimension. 3. Akinetic anterior wall and anteroseptal segments. 4. [place] is dyskinetic. 5. Moderate aortic valve sclerosis. 6. No aortic valve stenosis. ST elevation (STEMI) myocardial infarction (06/02/20) Occluded LAD, status post drug-eluting stent. Type 2 diabetes mellitus (~05/2020) Hemoglobin A1c was 13.7% on 06/03/2020. Surgical History Surgical History History of coronary artery stent placement (06/02/20) Drug-eluting stent to an occluded LAD on 06/02/[address] Cummings. Family History Family History Father Lung cancer Sibling Sarcoma Social History Social History Social History: The patient lives in his own home in [place]. 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 He is a lifelong nonsmoker and denies alcohol and drug abuse. He designates his 85-year-old mother as his surrogate decision maker and he wishes to be a full code. Smoking status: Never smoker Second hand tobacco smoke exposure: No Alcohol intake: never Substance use: never Substance use type: does not use Gender identity (if verbalized by the patient): Male Spiritual care concerns: No Exam Narrative: Exam Narrative: APPEARANCE: No acute distress, nontoxic, resting in bed HEENT: Normocephalic, atraumatic, OMM RESPIRATORY: No respiratory distress, clear to auscultation bilaterally with no rhonchi wheezing or rales CARDIOVASCULAR: RRR s murmur ABDOMINAL: Soft nondistended tender palpation right lower quadrant left lower quadrant tenderness right upper quadrant left upper quadrant, ventral hernia present that can be reduced MUSCULOSKELETAl: Moves all extremities. No clubbing, cyanosis or edema. NEURO: Awake and alert. Following commands, speech normal, no focal deficits SKIN:: Warm, dry. Normal Color PSYCHIATRIC: Normal affect/mood Course Course Emergency Course: Reviewed old records. Patient has had leukocytosis and past Called discussed with
[2021-02-19] MEDS: SODIUM CHLORIDE 0.9% IV 1,000 ML 999 ML IV CONT (20:02)
[2021-02-19] MEDS: MORPHINE SULFATE (*CRX) 4 MG/ML INJ IV PUSH (20:02)
[2021-02-19] MEDS: ONDANSETRON INJ 4 MG/2 ML VIAL IV PUSH (20:03)
[2021-02-19 20:53] LABS: Basophils Percent Auto 0.2 % (0.2-1.2); Eosinophils Percent Auto 0.1 % (0-4.4); Hematocrit 45.8 % (42.0-52.0); Immature Granulocyte Absolute 0.06 K/mm3 (0.00-0.031); Immature Granulocyte Percent A 0.4 % (0-0.5); Lymphocytes Absolute Auto 0.86 K/mm3 (0.9-3.2); Lymphocytes Percent Auto 5.2 % (18.3-44.2); Mean Corpuscular HGB Conc 34.9 g/dl (32-36); Mean Corpuscular Hemoglobin 28.6 pg (26-34); Mean Corpuscular Volume 81.8 fl (80-100); Monocytes Percent Auto 6.2 % (2.6-8.5); Neutrophils Absolute Auto 14.7 K/mm3 (1.3-6.7); Neutrophils Percent Auto 87.9 % (45.5-73.1); Platelet Count Result 255 k/mm3 (150-375); Red Cell Distribution Width 12.9 % (11.5-14.5); White Blood Count 16.7 K/mm3 (4.5-10.0)
[2021-02-19 21:06] LABS: Alanine Aminotransferase 25 U/L (4-50); Albumin Level 4.1 g/dL (3.5-5.1); Alkaline Phosphatase 63 U/L (38-126); Anion Gap 8 mmol/L (8-16); Aspartate Amino Transferase 42 U/L (17-59); Bilirubin,Total 1.2 mg/dL (0.2-1.3); Blood Urea Nitrogen 19 mg/dL (9-20); Carbon Dioxide 25 mmol/L (22-30); Chloride 97 mmol/L (98-107); Estimated CRCL calculation 44 ml/min; Estimated Glomerular Filt Rate 47; Glucose 154 mg/dL (75-110); Lipase 102 U/L (23-300); Potassium 4.6 mmol/L (3.4-5.0); Sodium 130 mmol/L (137-145)
[2021-02-19 21:39] VITALS: BP 132/76; PULSE 79; RESP 18; O2SAT 98
[2021-02-19 21:43] LABS: Add Urine Microscopic? YES; Appearance Urine Clear (Clear); Bilirubin Urine Negative (Negative); Blood Urine 3+ (Negative); Color Urine Yellow (Yellow); Glucose Urine UA Negative (Negative); Ketones Urine Negative (Negative); Leukocyte Esterase Ur Negative LEU/UL (Negative); Mucus Urine Rare /lpf; Nitrate Urine Negative (Negative); Protein Urine Negative (Negative); RBC Urine 51-75 /hpf (0-2); Specific Grav Ur 1.012 (1.001-1.035); Urobilinogen Urine Negative mg/dL (<2.0); WBC Urine 0-3 /hpf
--- NOTE | 2021-02-19 22:10 | PC.NURSE ---
Total urine output is 2400ml. Pt reports feeling much better. No new s/s.
[2021-02-19 22:15] VITALS: BP 120/80; PULSE 72; RESP 18; O2SAT 98
[2021-02-19] MEDS: TAMSULOSIN HCL 0.4 MG CAPSULE PO (23:42)
[2021-02-19 23:48] VITALS: BP 101/71; BP 112/93; BP 83/63; PULSE 105; PULSE 79; PULSE 81
[2021-02-20] VITALS (20 sets, daily range): BP systolic 93–122; BP diastolic 54–94; PULSE 66–83; RESP 16–18; TEMP 36.1–37.4; O2SAT 92–100; BMI 31.1
[2021-02-20] MEDS: SODIUM CHLORIDE 0.9% IV 1,000 ML 999 ML IV CONT (00:07)
[2021-02-20 02:27] LABS: Lactic Acid Reflex 1.4 mmol/L (0.7-2.1)
--- NOTE | 2021-02-20 03:17 | ADMGEN ---
This patient, Souleymane Haro, was admitted to 3 Med Surg Room 310-01. Patient/family oriented to hospital policies and general routines including ID bracelet, bed and alarms, visiting hours, pain management, procedures, bathroom and other care routines, personal items, smoking policy, room service/diet, and visiting hours. Information on how to activate the Rapid Response Team has been discussed. Patient/Family are encouraged to report perceived risks to care and to ask questions if they do not understand what they are told or what they should do.
[2021-02-20] MEDS: SODIUM CHLORIDE 0.9% IV 1,000 ML 100 ML IV CONT ×2 (05:04→15:07)
--- NOTE | 2021-02-20 07:33 | PM.IMHP ---
H&P: HPI History of Present Illness Date/Time: 02/20/21 07:33 This is a 70-year-old male with past medical history significant for coronary artery disease, type 2 diabetes mellitus diet control and on oral agent, dyslipidemia, congestive systolic heart failure ejection fraction 30-35% grade I diastolic dysfunction as well. Patient states that he has been in his usual prior state of health up until 2 days ago where he had trouble starting is starting his stream and was dribbling he finally presented to the emergency due to pressure in the low abdomen and got a Leonard catheter placed in the emergency room and they finally got it all out . Urinalysis was significant for red blood cells present. Chemistry and hematology panels were significant for some leukocytosis but no left shift chemistry panel was significant for some slight hyponatremia and slightly elevated creatine. A CT of abdomen and pelvis was significant for distention of bladder hydroureternephrosis. Patient denies any fevers chills or rigors, no cough no sputum production no shortness of breath, no chest pain, no palpitations no orthopnea no PND, no leg swelling, no nausea no vomiting no diarrhea no abdominal pain. Chief Complaint: Dribbling Review of Systems Review of Systems: Narrative: Unable to avoid for 2 day urine with commode as dribbling Constitutional: Comments: No fevers no rigors no chills Eyes: Comments: No vision change ENT: Comments: No ear ache sore throat or nose discharge Cardiovascular: Comments: No chest pain no palpitations no PND no orthopnea Respiratory: Comments: No shortness of breath no cough no sputum production Gastrointestinal: Comments: Abdominal pain and pressure in the lower abdomen and distension Musculoskeletal: Comments: No joint pain Integumentary/Breasts: Comments: No rashes Neurologic: Comments: No sensorimotor deficit Endocrine: Comments: No polydipsia polyphagia or polyuria no heat or cold intolerance Hematologic/Lymphatic: Comments: No lymphadenopathy PMFSH Past Medical History Medical History Coronary artery disease (~05/2020) Drug-eluting stent to LAD on 06/02/2020. Subtotal RCA lesion noted on the same cath. Essential hypertension (~05/2020) Gout Gout Hyperlipidemia (~05/2020) Ischemic cardiomyopathy (~05/2020) Echocardiogram on 06/03/2020: 1. Severely reduced left ventricular systolic function, EF estimated at 30-35%. 2. Normal left ventricular chamber dimension. 3. Akinetic anterior wall and anteroseptal segments. 4. [place] is dyskinetic. 5. Moderate aortic valve sclerosis. 6. No aortic valve stenosis. ST elevation (STEMI) myocardial infarction (06/02/20) Occluded LAD, status post drug-eluting stent. Type 2 diabetes mellitus (~05/2020) Hemoglobin A1c was 13.7% on 06/03/2020. Surgical History Surgical History History of coronary artery stent placement (06/02/20) Drug-eluting stent to an occluded LAD on 06/02/[address] Cummings. Family History Family History Father Lung cancer Sibling Sarcoma Social History Social History Social History: The patient lives in his own home in [place]. 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 He is a lifelong nonsmoker and denies alcohol and drug abuse. He designates his 85-year-old mother as his surrogate decision maker and he wishes to be a full code. Smoking status: Never smoker Second hand tobacco smoke exposure: No Alcohol intake: never Substance use: never Substance use type: does not use Gender identity (if verbalized by the patient): Male Spiritual care concerns: No Meds Home Medications and Allergies Home Medications Medication Instructions Recorded Confirmed Type aspirin 81 mg PO DAILY 06/02/20 02/20/21 Histor
--- NOTE | 2021-02-20 11:02 | WPDURCON ---
Assessment and Plan Assessment and plan (1) Acute renal failure (ARF): Code(s): N17.9 - Acute kidney failure, unspecified Status: Acute Assessment and Plan: Will re-draw a creatinine level to ensure it has returned to normal after catheter placement. (2) Acute urinary retention: Code(s): R33.8 - Other retention of urine Status: Acute Assessment and Plan: Causing secondary ARF, will likely resolve after catheter placement for 7-10 days on Flomax. Will perform a voiding trial next week in the office. Discharge home when stable with robles catheter and continue Tamusulsoin. No further evaluation necessary. (3) BPH (benign prostatic hyperplasia): Code(s): N40.0 - Benign prostatic hyperplasia without lower urinary tract symptoms Status: Acute Urology Consult Note HPI Date Seen: 02/20/21 Requesting Physician: Nelson Esquivel MD Primary Care Provider: Augustin Jones DO Consult Narrative Narrative: Souleymane Haro is a 70 year old male who presented to the ER yesterday for severe abdominal pain that was radiating to the groin bilaterally, which began the day prior 02/18/2021. He had a WBC of 16.7 yesterday and a creatinine of 1.50 yesterday as well. He is hypotensive, but otherwise stable. He also had associated nausea and vomiting with the abdominal pain. He was found to be in urinary retention and had a robles placed which instantly relieved his symptoms. He states that when the pain started on Saturday, he had the urge to urinate but was only dribbling. Prior to this he denies excessive nocturia, and only gets up 1-2x/night. He also states that during the day his frequency is noted only q 2-3 hours, without any incontinence, hesitancy or straining. He has never seen a urologist before and has not had a ANDER or PSA by his PCP. His UA shows 3+ blood, but is otherwise normal. He is currently on Bactrim and we are awaiting blood culture results, no repeat blood work has been done today. Review of Systems Cardiovascular: Cardiovascular: Denies chest pain Respiratory: Respiratory: Reports no additional respiratory complaints Gastrointestinal: Gastrointestinal: Denies nausea and Denies vomiting Genitourinary: Genitourinary: Reports hematuria, Denies flank pain, Reports urinary hesitancy, Denies urinary incontinence and Denies urinary urgency PMF Past Medical History Medical History Coronary artery disease (~05/2020) Drug-eluting stent to LAD on 06/02/2020. Subtotal RCA lesion noted on the same cath. Essential hypertension (~05/2020) Gout Gout Hyperlipidemia (~05/2020) Ischemic cardiomyopathy (~05/2020) Echocardiogram on 06/03/2020: 1. Severely reduced left ventricular systolic function, EF estimated at 30-35%. 2. Normal left ventricular chamber dimension. 3. Akinetic anterior wall and anteroseptal segments. 4. [place] is dyskinetic. 5. Moderate aortic valve sclerosis. 6. No aortic valve stenosis. ST elevation (STEMI) myocardial infarction (06/02/20) Occluded LAD, status post drug-eluting stent. Type 2 diabetes mellitus (~05/2020) Hemoglobin A1c was 13.7% on 06/03/2020. Surgical History Surgical History History of coronary artery stent placement (06/02/20) Drug-eluting stent to an occluded LAD on 06/02/[address] Cummings. Family History Family History Father Lung cancer Sibling Sarcoma Social History Social History Social History: The patient lives in his own home in [place]. 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 He is a lifelong nonsmoker and denies alcohol and drug abuse. He designates his 85-year-old mother as his surrogate decision maker and he wishes to be a full code. Smoking status: Never smoker Second hand tobacco smoke exposur
[2021-02-20 12:17] LABS: Estimated CRCL calculation 67 ml/min; Estimated Glomerular Filt Rate > 60
[2021-02-20] MEDS: METOPROLOL TARTRATE 12.5 MG TABLET PO (20:31)
[2021-02-21] MEDS: SODIUM CHLORIDE 0.9% IV 1,000 ML 100 ML IV CONT (01:06)
[2021-02-21 06:00] VITALS: BP 102/71; PULSE 59; RESP 20; TEMP 37.2; O2SAT 97
[2021-02-21 06:34] LABS: Basophils Absolute Auto 0.1 K/mm3 (0.0-0.1); Basophils Percent Auto 0.7 % (0.2-1.2); Eosinophils Absolute Auto 0.4 K/mm3 (0-0.3); Eosinophils Percent Auto 3.3 % (0-4.4); Hematocrit 39.3 % (42.0-52.0); Hemoglobin 13.3 g/dL (14.0-18.0); Immature Granulocyte Absolute 0.05 K/mm3 (0.00-0.031); Immature Granulocyte Percent A 0.5 % (0-0.5); Lymphocytes Absolute Auto 1.84 K/mm3 (0.9-3.2); Lymphocytes Percent Auto 17.4 % (18.3-44.2); Mean Corpuscular HGB Conc 33.8 g/dl (32-36); Mean Corpuscular Hemoglobin 28.3 pg (26-34); Mean Corpuscular Volume 83.6 fl (80-100); Mean Platelet Volume 9.6 fl (7.4-10.4); Monocytes Absolute Auto 1.3 K/mm3 (0.1-0.6); Monocytes Percent Auto 11.8 % (2.6-8.5); Neutrophils Percent Auto 66.3 % (45.5-73.1); Platelet Count Result 211 k/mm3 (150-375); Red Cell Distribution Width 13.3 % (11.5-14.5); White Blood Count 10.6 K/mm3 (4.5-10.0)
[2021-02-21 06:40] LABS: Anion Gap 4 mmol/L (8-16); Blood Urea Nitrogen 15 mg/dL (9-20); Calcium 9.3 mg/dL (8.4-10.2); Carbon Dioxide 25 mmol/L (22-30); Chloride 109 mmol/L (98-107); Estimated CRCL calculation 73 ml/min; Estimated Glomerular Filt Rate > 60; Glucose 108 mg/dL (75-110); Potassium 3.9 mmol/L (3.4-5.0); Sodium 138 mmol/L (137-145)
[2021-02-21 08:00] VITALS: PULSE 76; RESP 20; O2SAT 97
[2021-02-21 09:43] VITALS: PULSE 76
[2021-02-21] MEDS: METOPROLOL TARTRATE 12.5 MG TABLET PO (09:43)
--- NOTE | 2021-02-21 14:36 | PM.DS ---
DS: Admitting Diagnosis Admitting Diagnosis Admitting Diagnosis: (1) Acute urinary retention: (2) Leukocytosis: (3) Acute renal insufficiency: (4) Type II diabetes mellitus: (5) Ischemic cardiomyopathy: (6) Coronary artery disease: (7) Systolic heart failure: (8) Diastolic heart failure: DS: Discharge Diagnosis Discharge Diagnosis (1) Acute urinary retention: Code(s): R33.8 - Other retention of urine Status: Acute Assessment and Plan: SECONDARY TO PROSTATIC HYPERPLASIA EVERETT IN HE WILL GO HOME WITH EVERETT VOIDING TRIAL AT OFFICE IN THE OUTPATIENT SETTING APPRECIATE UROLOGY NOTE (2) BPH (benign prostatic hyperplasia): Code(s): N40.0 - Benign prostatic hyperplasia without lower urinary tract symptoms Status: Acute Assessment and Plan: CONTINUE TAMSULOSIN (3) Acute renal failure (ARF): Code(s): N17.9 - Acute kidney failure, unspecified Status: Acute Assessment and Plan: HIS BUN AND CREATININE BACK TO PATIENT'S BASELINE LIKELY TO BE POST RENAL (4) Leukocytosis: Code(s): D72.829 - Elevated white blood cell count, unspecified Status: Acute Assessment and Plan: RESOLVED LIKELY TO BE REACTIVE (5) Diastolic heart failure: Code(s): I50.30 - Unspecified diastolic (congestive) heart failure Status: Acute Assessment and Plan: COMPENSATED (6) Systolic heart failure: Code(s): I50.20 - Unspecified systolic (congestive) heart failure Status: Acute Assessment and Plan: COMPENSATED (7) Type II diabetes mellitus: Code(s): E11.9 - Type 2 diabetes mellitus without complications Status: Acute Assessment and Plan: NOT WELL CONTROLLED A1C 13% FOLLOW-UP IN OUTPATIENT SETTING (8) Ischemic cardiomyopathy: Onset Date: ~05/2020 Code(s): I25.5 - Ischemic cardiomyopathy Status: Acute Assessment and Plan: PATIENT KNOWN TO OUR ANTI-PLATELET THERAPY LOSART[place] METOPROLOL STATIN (9) Coronary artery disease: Onset Date: ~05/2020 Qualifiers: Coronary Disease-Associated Artery/Lesion type: [place] artery [place] vs. transplanted heart: [place] heart Associated angina: with unspecified angina Qualified Code(s): I25.119 - Atherosclerotic heart disease of [place] coronary artery with unspecified angina pectoris Code(s): I25.10 - Atherosclerotic heart disease of [place] coronary artery without angina pectoris Status: Acute Assessment and Plan: STATUS POST STENT PLACEMENT DRUG ELUDING CONTINUE DUAL ANTI-PLATELET THERAPY (10) Type 2 diabetes mellitus: Onset Date: ~05/2020 Qualifiers: Diabetes mellitus fdc insulin use: with fdc use Diabetes mellitus complication status: with hyperglycemia Qualified Code(s): E11.65 - Type 2 diabetes mellitus with hyperglycemia; Z79.4 - 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 worker (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) use of insulin Code(s): E11.9 - Type 2 diabetes mellitus without complications Status: Acute Assessment and Plan: MONITOR IN THE OUTPATIENT SETTING DS: Summary Hospital Course Reason for hospitalization: ABDOMINAL PAIN AND PRESSURE Hospital Course: THIS IS A 70-YEAR-OLD MALE WITH PAST MEDICAL HISTORY SIGNIFICANT FOR TYPE 2 DIABETES MELLITUS, CORONARY ARTERY DISEASE HYPERTENSION DIASTOLIC HEART FAILURE SYSTOLIC HEART FAILURE PATIENT PRESENTED TO THE EMERGENCY ROOM DUE TO DYSURIA PATIENT HAD BEEN HAVING PROBLEMS VOIDING HAD BEEN DRIBBLING FOR THE LAST PRIOR TO DAYS BEFORE PRESENTATION TO THE EMERGENCY ROOM HE WAS FOUND TO HAVE URINARY RETENTION AND EVERETT WAS PLACED IN THE EMERGENCY ROOM WHICH DRAINED LARGE VOLUME OF URINE A CONSULT WAS OBTAINED WITH UROLOGY AND PATIENT WAS STARTED ON TAMSULOSIN HE WAS GIVEN IV FLUID FOR ACUTE KIDNEY INJURY A REPEAT BMP IN THE MORNING SHOWED BUN AND CREATININE BACK TO PATIENT'S BASELINE PATIENT WAS DISCHARGED HOME WITH EVERETT IN [place] H
== END 2021-02-21 11:20 | disposition home or self-care (01) ==
LOC: ANHED 20:23 → ANH3MEDSUR 02-20 01:45
PROVIDERS: Nurse Practitioner Adult Health; Admitting Provider Internal Medicine; Emergency Provider Emergency Medicine; PCP Internal Medicine; Visit Provider Internal Medicine
DX: R33.8 Other retention of urine (principal); N17.9 Acute kidney failure, unspecified; N40.0 Benign prostatic hyperplasia without lower urinary tract symptoms; I25.10 Atherosclerotic heart disease of native coronary artery without angina pectoris; I25.2 Old myocardial infarction; I11.0 Hypertensive heart disease with heart failure; I50.40 Unspecified combined systolic (congestive) and diastolic (congestive) heart failure; I25.5 Ischemic cardiomyopathy; E11.9 Type 2 diabetes mellitus without complications; Z95.5 Presence of coronary angioplasty implant and graft
CPT/HCPCS: 36415; 74177; 80048; 80053; 81001; 82565; 83605; 83690; 85025; 87040; 96361; 96374; 96375; 96376; 99285; A9270; G0378; J2270; J2405; J7030; Q9967

== ENCOUNTER 2021-03-27 11:23 | Outpatient (CLI) | payer MEDICARE, MEDICAID, SELFPAY ==
[2021-03-27 12:00] LABS: Hemoglobin A1C 6.7 % (<5.7)
[2021-03-27 12:43] LABS: Alanine Aminotransferase 20 U/L (4-50); Albumin Level 3.9 g/dL (3.5-5.1); Alkaline Phosphatase 73 U/L (38-126); Anion Gap 7 mmol/L (8-16); Aspartate Amino Transferase 27 U/L (17-59); Bilirubin,Total 0.6 mg/dL (0.2-1.3); Blood Urea Nitrogen 19 mg/dL (9-20); Calcium 10.6 mg/dL (8.4-10.2); Carbon Dioxide 24 mmol/L (22-30); Chloride 108 mmol/L (98-107); Cholesterol 130 mg/dL (0-200); Estimated Glomerular Filt Rate > 60; Glucose 134 mg/dL (75-110); HDL Direct 41 mg/dL; Sodium 139 mmol/L (137-145); Triglycerides 67 mg/dL (<150); Uric Acid 5.2 mg/dL (3.5-8.5)
[2021-03-27 12:54] LABS: LDL Cholesterol Direct 74 mg/dL
[2021-03-27 13:14] LABS: Prostate Specific Antigen 3.2 ng/mL (< OR = 4.0)
[2021-03-27 13:44] LABS: Creatinine Urine 83.4 mg/dL
[2021-03-27 13:49] LABS: MALB Creatinine Ratio 19.4 mg/g (0-30); Microalbumin Urine Random 16.2 mg/L (0-16.7)
== END 2021-03-27 11:24 | disposition home or self-care (01) ==
PROVIDERS: PCP Internal Medicine; Visit Provider Nurse Practitioner
DX: E11.65 Type 2 diabetes mellitus with hyperglycemia (principal); Z79.4 Long term (current) use of insulin; E78.5 Hyperlipidemia, unspecified; Z12.5 Encounter for screening for malignant neoplasm of prostate; M10.9 Gout, unspecified
CPT/HCPCS: 36415; 80053; 80061; 82043; 83036; 84153; 84550; G0103

== ENCOUNTER 2021-10-17 09:42 | Outpatient (CLI) | payer MEDICARE, MEDICAID, SELFPAY ==
[2021-10-17 10:11] LABS: Hemoglobin A1C 6.8 % (<5.7)
[2021-10-17 10:19] LABS: Alanine Aminotransferase 26 U/L (4-50); Albumin Level 3.9 g/dL (3.5-5.1); Alkaline Phosphatase 72 U/L (38-126); Anion Gap 7 mmol/L (8-16); Aspartate Amino Transferase 28 U/L (17-59); Bilirubin,Total 0.5 mg/dL (0.2-1.3); Blood Urea Nitrogen 15 mg/dL (9-20); Carbon Dioxide 24 mmol/L (22-30); Chloride 104 mmol/L (98-107); Cholesterol 117 mg/dL (0-200); Estimated Glomerular Filt Rate > 60; Glucose 139 mg/dL (65-110); HDL Direct 36 mg/dL; Potassium 4.1 mmol/L (3.4-5.0); Sodium 135 mmol/L (137-145); Triglycerides 66 mg/dL (<150); Uric Acid 6.6 mg/dL (3.5-8.5)
[2021-10-17 10:30] LABS: LDL Cholesterol Direct 64 mg/dL
== END 2021-10-17 09:43 | disposition home or self-care (01) ==
LOC: ANHLAB 09:48
PROVIDERS: PCP Internal Medicine; Visit Provider Internal Medicine
DX: E11.65 Type 2 diabetes mellitus with hyperglycemia (principal); I10 Essential (primary) hypertension; Z79.4 Long term (current) use of insulin; E78.5 Hyperlipidemia, unspecified; M10.9 Gout, unspecified
CPT/HCPCS: 36415; 80053; 80061; 83036; 84550

== ENCOUNTER 2021-11-28 05:18 | Observation (INO) | payer MEDICARE, MEDICAID, SELFPAY ==
[2021-11-28] VITALS (15 sets, daily range): BP systolic 126–148; BP diastolic 70–80; PULSE 54–86; RESP 14–20; TEMP 36.4–36.8; O2SAT 96–100; BMI 32.5
--- NOTE | 2021-11-28 | ECHO_ITS ---
Patient Info Name: Souleymane Haro Age: 71 years : 1950 Gender: Male Ht: 70 in Wt: 220 lbs BSA: 2.25 m2 HR: 59 bpm BP: 146 / 70 mmHg Exam Date: 11/28/2021 10:23 AM Exam Location: [facility] Patient Status: Outpatient Admit Date: 11/28/2021 Staff Ordering Physician: Jaswinder Julian MD Airplane Cleaner: Adam De La Torre, LANDON, RT Attending Provider: Gera Maher MD Exam Type: CA echo dop color flow w con Study Info Indications R07.9 - Chest pain, unspecified Complete two-dimensional, color flow and Doppler transthoracic echocardiogram is performed. Strain analysis performed. Summary 1. Complete two-dimensional, color flow and Doppler transthoracic echocardiogram is performed. 2. Borderline LV enlargement, moderate LVH; moderate LV systolic dysfunction with segmental wall motion abnormality-anteroseptal and mid anterior akinesis; thinning of apical segment; hypokinetic inferoseptum. Ejection fraction approximately 35-40%. Diastolic dysfunction is present. No significant MR. Mild aortic valve calcification, mild aortic stenosis, FELIX 1.9 m2. Unable to assess RVSP due to inadequate TR jet. Sius rhythm and sinus bradycardia during the study. Left Ventricle Left ventricular systolic function is moderately reduced, estimated at 35-40%. The left ventricular diastolic function is abnormal. Right Ventricle Right ventricular chamber dimension is normal. Right ventricular systolic function is normal. Left Atria Left atrial chamber dimension is mildly enlarged. Right Atria Right atrial chamber dimension is normal. Aortic Valve There is mild aortic valve stenosis with a peak velocity of 154.75 cm/s, mean gradient of 5 mmHg, and aortic valve area of 1.90 cm2. There is mild aortic valve calcification. Pulmonic Valve The pulmonic valve is normal. Mitral Valve The mitral valve has normal leaflets. There is trace mitral valve regurgitation. Tricuspid Valve There is trace tricuspid valve regurgitation. Pericardium/Pleural The pericardium appears epicardial fat pad. Aorta The aortic root size at the sinus of Valsalva is normal. Left Ventricular Outflow Tract Name Value Normal LVOT 2D LVOT Diameter 2.04 cm LVOT Doppler LVOT Peak Gradient 3 mmHg LVOT Mean Gradient 2 mmHg LVOT VTI 20.01 cm LVOT VTI/AV VTI Ratio 0.58 LVOT Stroke Volume 65.20 ml LVOT CO 3.81 l/min LVOT CI 1.69 L/min/m2 Mitral Valve Name Value Normal MV Doppler MV Decel [place] 326.61 cm/s2 MV PHT 0 s MV Area (PHT) 3.29 cm2 4.00-5.00 MV Diastolic Function
--- NOTE | ~2021-11-28 | XR_ITS ---
XR chest 2V DATE: 11/28/2021 06:10 INDICATION: Chest pain TECHNIQUE: PA and lateral views COMPARISON: 06/04/2020 AP chest 02/19/2021 CT abdomen pelvis FINDINGS: Normal heart size. Aortic arch calcification. No hilar or mediastinal enlargement. No pulmonary infiltrate or consolidation, pleural effusion or pulmonary vascular congestion or pneumo thorax. Diffuse idiopathic skeletal hyperostosis of the thoracic spine. Chronic mild anterior wedging of T11 and T12, unchanged since 02/19/2021 IMPRESSION: No active cardiopulmonary disease Reviewed, dictated and finalized at location A. [facility]
--- NOTE | 2021-11-28 05:19 | ECG_ITS ---
Measurements Intervals [place] Rate: 60 P: -1 WI: 170 QRS: -9 QRSD: 105 T: 56 QT: 382 QTc: 384 Interpretive Statements SINUS RHYTHM LOW QRS VOLTAGE IN PRECORDIAL LEADS CONSIDER INFERIOR INFARCT, AGE INDETERMINATE EXTENSIVE ANTERIOR INFARCT, AGE INDETERMINATE BASELINE ARTIFACT- I, II, AVR, V4 ABNORMAL ECG Electronically Signed On 11-28-2021 6:28:14 [employer]OR [employer]ISH[employer] RO[employer] by Shane Vazquez D.O.
[2021-11-28 05:45] LABS: Basophils Absolute Auto 0.1 K/mm3 (0.0-0.1); Basophils Percent Auto 0.7 % (0.2-1.2); Eosinophils Percent Auto 0.4 % (0-4.4); Hematocrit 47.8 % (42.0-52.0); Hemoglobin 16.2 g/dL (14.0-18.0); Immature Granulocyte Absolute 0.04 K/mm3 (0.00-0.031); Immature Granulocyte Percent A 0.6 % (0-0.5); Lymphocytes Absolute Auto 1.22 K/mm3 (0.9-3.2); Lymphocytes Percent Auto 18.1 % (18.3-44.2); Mean Corpuscular HGB Conc 33.9 g/dl (32-36); Mean Corpuscular Hemoglobin 28.6 pg (26-34); Mean Corpuscular Volume 84.5 fl (80-100); Mean Platelet Volume 9.3 fl (7.4-10.4); Monocytes Absolute Auto 1.2 K/mm3 (0.1-0.6); Neutrophils Absolute Auto 4.3 K/mm3 (1.3-6.7); Neutrophils Percent Auto 63.2 % (45.5-73.1); Platelet Count Result 185 k/mm3 (150-375); Red Blood Count 5.66 M/mm3 (4.6-6.20); Red Cell Distribution Width 13.2 % (11.5-14.5); White Blood Count 6.8 K/mm3 (4.5-10.0)
--- NOTE | 2021-11-28 05:53 | ED.CHESTPAIN ---
HPI - Chest Pain General Chief Complaint: Chest Pain <Blake Park MD - Last Filed: 11/28/21 06:41> Stated Complaint: Chest pain <Blake Park MD - Last Filed: 11/28/21 06:41> Time Seen by Provider: 11/28/21 05:22 <Blake Park MD - Last Filed: 11/28/21 06:41> History of Present Illness HPI narrative: Patient is a 71-year-old male who presents ER with chest pain. Intermittent over the last day and a half. Worse with bending over and twisting. Lasts for seconds to minutes at a time until he moves out of the position of discomfort. Reports its worse when he is laying directly on his left side. No diaphoresis. No exertional chest pain or shortness of breath. No pain with deep breath. No known injury or trauma. Has not tried any pain medication. Does have a history of cardiac stents. Recently discontinued Brilinta at recommendation of his child adolescent psychiatrist. Patient does report he has had some fatigue over the last 2 days and did not eat anything yesterday but did eat some soup. No known sick contacts. No fevers or chills or sweats. No productive cough. <Blake Park MD - Last Filed: 11/28/21 06:41> Related Data Home Medications: Home Medications Medication Instructions Recorded Confirmed aspirin 81 mg PO DAILY 06/02/20 10/19/21 metoprolol tartrate 12.5 mg PO BID 07/05/20 10/19/21 lancets 33 gauge each 07/11/20 10/19/21 <Blake Park MD - Last Filed: 11/28/21 06:41> Allergies/Adverse Reactions: Allergies Allergy/AdvReac Type Severity Reaction Status Date / Time No Known Allergies Allergy Verified 11/28/21 05:30 <Blake Park MD - Last Filed: 11/28/21 06:41> Review of Systems Review of Systems: All systems reviewed & are unremarkable except as noted in HPI and below <Blake Park MD - Last Filed: 11/28/21 06:41> Constitutional: Constitutional: Denies chills, Reports fatigue, Denies fever(s) and Denies weakness <Blake Park MD - Last Filed: 11/28/21 06:41> ENT: Denies nasal congestion and Denies sore throat <Blake Park MD - Last Filed: 11/28/21 06:41> Cardiovascular: Cardiovascular: Reports chest pain, Denies rapid heart rate and Denies radiating jaw, neck or arm pain <Blake Park MD - Last Filed: 11/28/21 06:41> Respiratory: Respiratory: Denies cough, Denies dyspnea and Denies wheezing <Blake Park MD - Last Filed: 11/28/21 06:41> Gastrointestinal: Gastrointestinal: Denies abdominal pain, Denies diarrhea, Denies nausea and Denies vomiting <Blake Park MD - Last Filed: 11/28/21 06:41> Musculoskeletal: Musculoskeletal: Denies back pain and Denies muscle cramps <Blake Park MD - Last Filed: 11/28/21 06:41> [facility] Past Medical History Medical History: Medical History Coronary artery disease (~05/2020) Drug-eluting stent to LAD on 06/02/2020. Subtotal RCA lesion noted on the same cath. Essential hypertension (~05/2020) Gout Gout Hyperlipidemia (~05/2020) Ischemic cardiomyopathy (~05/2020) Echocardiogram on 06/03/2020: 1. Severely reduced left ventricular systolic function, EF estimated at 30-35%. 2. Normal left ventricular chamber dimension. 3. Akinetic anterior wall and anteroseptal segments. 4. [place] is dyskinetic. 5. Moderate aortic valve sclerosis. 6. No aortic valve stenosis. ST elevation (STEMI) myocardial infarction (06/02/20) Occluded LAD, status post drug-eluting stent. Type 2 diabetes mellitus (~05/2020) Hemoglobin A1c was 13.7% on 06/03/2020. <Blake Park MD - Last Filed: 11/28/21 06:41> Surgical History Surgical History: Surgical History History of coronary artery stent placement (06/02/20) Drug-eluting stent to an occluded LAD on 06/02/[address] Cummings. <Blake Park MD - Last Filed: 11/28/21 06:41> Family History Family Histor
[2021-11-28] MEDS: ASPIRIN 81 MG CHEWABLE TABLET 324 MG PO (06:10)
[2021-11-28 06:17] LABS: Prothrombin Time 13.3 Seconds (11.1-14.7)
[2021-11-28 06:18] LABS: Partial Thromboplastin Time 32.2 SECONDS (22.3-36.8)
[2021-11-28 06:24] LABS: Alanine Aminotransferase 36 U/L (4-50); Alkaline Phosphatase 64 U/L (38-126); Anion Gap 9 mmol/L (8-16); Aspartate Amino Transferase 49 U/L (17-59); Bilirubin,Total 0.6 mg/dL (0.2-1.3); Blood Urea Nitrogen 21 mg/dL (9-20); Carbon Dioxide 23 mmol/L (22-30); Chloride 102 mmol/L (98-107); Estimated CRCL calculation 58 ml/min; Estimated Glomerular Filt Rate > 60; Glucose 132 mg/dL (65-110); Lipase 120 U/L (23-300); Potassium 4.1 mmol/L (3.4-5.0); Sodium 134 mmol/L (137-145)
--- NOTE | 2021-11-28 06:27 | PC.NURSE ---
lab has rejected green top vial x 3. all 3 drawn from different sites.
[2021-11-28 06:36] LABS: Troponin I < 0.012 ng/mL (0.000-0.034)
--- NOTE | 2021-11-28 08:41 | PM.CNCAR ---
Assessment and Plan Assessment and plan (1) Chest pain: Code(s): R07.9 - Chest pain, unspecified Status: Acute Assessment and Plan: 71-year-old male with CAD, history of anterior ST-elevation NE (anterior ST-elevation NE on 06/02/2020 status post primary PCI/3.0 x 22 mm Orsiro drug-eluting stent proximal LAD; staged PCI on ostial-proximal RCA using a 3.0 x 26 mm Orsiro drug-eluting and repeat PCI/stenting on proximal LAD residual stenosis found on repeat coronary angiogram using a 3.0 x 22 mm orsiro drug-eluting stent on 07/06/2020), ventricular tachycardia in the setting of NE, type 2 diabetes mellitus, dyslipidemia, BPH. Patient presents to the hospital with 1 day history of chest pain which is positional in nature and atypical for myocardial ischemia. EKG shows sinus rhythm with extensive anteroseptal infarct. Two sets of troponins are negative thus far. No acute findings on CXR. -discussed with the patient about atypical nature of his symptoms. Patient is anxious and concerned about his symptoms. -admit to telemetry for observation -repeat 3rd set of troponins. -resume home medications including aspirin, beta-nj, ARB, statin. -will do echocardiogram with Doppler to reassess LV function and wall motion. -if patient's clinical status changes, and/or character of the chest pain changes to suggest myocardial ischemia, then patient will undergo invasive ischemic workup to re-evaluate coronary anatomy and rule out InStent restenosis. Plan discussed with the patient and he is in agreement. (2) CAD (coronary artery disease): Code(s): I25.10 - Atherosclerotic heart disease of [place] coronary artery without angina pectoris Status: Acute Assessment and Plan: Management as above (3) History of myocardial infarction: Code(s): I25.2 - Old myocardial infarction Status: Acute Assessment and Plan: Management as above (4) Ischemic cardiomyopathy: Onset Date: ~05/2020 Code(s): I25.5 - Ischemic cardiomyopathy Status: Acute Assessment and Plan: Will repeat echocardiogram with Doppler. History of Present Illness History of Present Illness Consult date/time: 11/28/21 08:41 DATE OF CONSULT: 11/28/2021 REASON FOR CONSULT: CHEST PAIN REQUESTING PHYSICIAN:Hodan Rodríguez MD CHIEF COMPLAINT: Chest pain HPI: 71-year-old male with CAD, history of anterior ST-elevation NE (anterior ST-elevation NE on 06/02/2020 status post primary PCI/3.0 x 22 mm Orsiro drug-eluting stent proximal LAD; staged PCI on ostial-proximal RCA using a 3.0 x 26 mm Orsiro drug-eluting and repeat PCI/stenting on proximal LAD residual stenosis found on repeat coronary angiogram using a 3.0 x 22 mm orsiro drug-eluting stent on 07/06/2020), ventricular tachycardia in the setting of NE, type 2 diabetes mellitus, dyslipidemia, BPH. Patient follows up with Dr. Cummings for his cardiovascular care. Patient was last seen in the clinic by Dr. Cummings on 10/17/2021 at which time patient was reportedly doing well and his dual antiplatelet therapy was switched to single antiplatelet treatment. His LVEF was reported to be 30-35% in the office notes. It is uncertain if patient had follow-up echocardiogram. Patient presented to [facility] ER on 11/28/2021 with complaints of chest pain that is started yesterday afternoon. He describes his chest pain as muscle pull like sensation in the left anterior chest, worse when he turns his body and sits up from lying down position. When he stands up and walks around, he does not have chest discomfort. Patient denies any trauma to the chest. He does not recall lifting any extraordinary weights lately. He states that his current symptoms of chest pain are different from what he had during his coronary event. He denies any associated symptoms including shortness of breath, palpitation, dizziness or syncope. No PND, orthopnea lower extremity swelling. He has not darnell
[2021-11-28 08:43] LABS: Troponin I < 0.012 ng/mL (0.000-0.034)
--- NOTE | 2021-11-28 08:57 | PM.IMHP ---
H&P: HPI History of Present Illness Date/Time: PATIENT HAS BEEN ADMITTED UNDER OBSERVATION STATUS 11/28/21 08:57 Chief Complaint: Chest pain Narrative: 71yo male with CAD, HTN and DM here for chest pain. Patient admitted 06/02/20 for chest pain and found to have STEMI from an occluded LAD. Emergency LHC with PCI and SATHYA placement to the LAD. He also had a high-grade stenosis in the terminal apical portion of the LAD but not amenable to PCI because of its extremely small size and moderate-high grade stenosis in the RCA. Patient did have pulseless rapid VTach felt to ba reperfusion related requiring cardioversion x4. Since, no recent stress tests. He was taken off his Brilinta 1 month ago. No recent new medicines. 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 He was pushing carts in and out of the facility but no heavy lifting. On 11/26, patient ?did not feel great? and felt tired with a slight headache. No fever or chills. No chest pain, cough or shortness of breath at that time. Yesterday afternoon, patient developed left-sided chest pain that was positional that occurred at rest. It was not pleuritic. It felt different than the time he had his myocardial infarction. The pain is worse if he is lying on his left side or when he tries to sit up. There was no associated shortness of breath, nausea, diaphoresis or radiation of the pain. He states that feels like a ?pulled muscle?. No pedal edema. No paresthesias or neuropathic symptoms to the left side of chest. He has not had Zoster vaccine. he has a hx of CVA with mild residual left upper extremity weakness. Pain persisted today and he present to the emergency room for evaluation. In the emergency room, he was hemodynamically stable. BNP was essentially normal. LFTs are normal. CBC was normal. Troponin was negative x2. Lipase was normal. EKG showed normal sinus rhythm with evidence of anterior infarct with QS pattern V1 through V5. Chest x-ray was clear. Patient received aspirin in the emergency room. Cardiology was consulted and patient was to be admitted for further management. Review of Systems Review of Systems: All systems reviewed & are unremarkable except as noted in HPI and below [facility] Past Medical History Medical History (Updated 11/28/21 @ 11:02 by Gera Maher MD) Coronary artery disease (~05/2020) Drug-eluting stent to LAD on 06/02/2020. Subtotal RCA lesion noted on the same cath. CVA (cerebral vascular accident) Multiple right sided CVAs most recent April 2010 by MRI Essential hypertension (~05/2020) Gout Hyperlipidemia (~05/2020) Ischemic cardiomyopathy (~05/2020) Echo 06/03/20: EF 30-35% with Akinetic anterior wall and anteroseptal segments and [place] is dyskinetic. ST elevation (STEMI) myocardial infarction (06/02/20) Occluded LAD, status post drug-eluting stent. Type 2 diabetes mellitus (~05/2020) A1c 6.8 10/17/21 Surgical History Surgical History History of coronary artery stent placement (06/02/20) Drug-eluting stent to an occluded LAD on 06/02/[address] Cummings. Family History Family History Father Lung cancer Sibling Sarcoma Social History Social History Social History: The patient lives in his own home in [place]. 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 He is a lifelong nonsmoker and denies alcohol and drug abuse. He designates his 85-year-old mother as his surrogate decision maker and he wishes to be a full code. Smoking status: Never smoker Second hand tobacco smoke exposure: No Alcohol intake: never Substance use: never Substance use type: does not use Gender identity (if verbalized by the patient): Male Sexual Orientation (if Verbalized by the Patient): Straight or Heterosexual Spiritual care concerns: No
--- NOTE | 2021-11-28 10:00 | ADMGEN ---
This patient, Souleymane Haro, was admitted AN IMU OBS OVERFLOW to [facility] VIA WC FROM ED. Patient/family oriented to ROOM, PLAN OF CARE, ORDERS, hospital policies and general routines including ID bracelet, bed and alarms, visiting hours, pain management, procedures, bathroom and other care routines, personal items, smoking policy, room service/diet, and visiting hours. DENIES CP OR SOB ON ARRIVAL. STATES EARLIER CP WAS LOCALIZED OVER LEFT CHEST, NONRADIATING. REPORTS HAD NO SOB, DIZZINESS, DIAPHORESIS, OR NAUSEA WITH CHEST PAIN EARLIER. CP IS NOT REPRODUCIBLE AT THIS TIME ON PALPATION OF L. CHEST OR WITH DEEP BREATH. STATES, THE PAIN DID NOT FEEL LIKE IT DID WHEN I HAD MY HEART ATTACK IN 2019, BUT I WAS CONCERNED, SO I CAME IN. Information on how to activate the Rapid Response Team has been discussed. Patient/Family are encouraged to report perceived risks to care and to ask questions if they do not understand what they are told or what they should do.
--- NOTE | 2021-11-28 10:22 | PC.NURSE ---
DR. KRUSE HERE TO SEE PT. ECHO IN PROGRESS AT BEDSIDE. PT. DENIES CP OR SOB.
[2021-11-28] MEDS: PERFLUTREN LIPID MICROSPHERES 1.5 ML VIAL DILUTED TO 10 ML TOTAL VOLUME IV PUSH (10:30)
[2021-11-28 12:06] LABS: Troponin I < 0.012 ng/mL (0.000-0.034)
--- NOTE | 2021-11-28 12:34 | PC.NURSE ---
DR. BOWLING NOTIFIED OF NEGATIVE TROPONIN RESULTS X 3 AND OF ECHO RESULTS BY JOANN MATOS RN. OK FROM HIS STANDPOINT TO CHANGE STATUS TO MED-TELE. JOANN Lopez RN ATTEMPTED TO NOTIFY DR. KRUSE OF SUCH.
[2021-11-28 13:14] LABS: Glucose Point of Care 106 mg/dl (65-105)
[2021-11-28] MEDS: METOPROLOL TARTRATE 12.5 MG TABLET PO ×2 (14:01→20:54)
--- NOTE | 2021-11-28 16:00 | PC.NURSE ---
STATUS CHANGED TO MED/TELE AT THIS TIME.
[2021-11-28] MEDS: metFORMIN HCL 500 MG TABLET PO (17:08)
--- NOTE | 2021-11-28 17:20 | PC.NURSE ---
[facility] HAS BEEN SENT TO [address] [place] [address] AND REPORT HAS BEEN CALLED TO LETY PISANO ON 3MED/TELE. QUESTIONS ANSWERED. PT. IS TO TRANSFER TO ROOM 348 MED/TELE STATUS PT. HAS DENIED CP OR SOB. ENCOURAGED PT. TO BE UP WALKING IN ROOM, SIT IN CHAIR. PT. AGREEABLE TO TRANSFER.
[2021-11-28 17:26] LABS: Glucose Point of Care 125 mg/dl (65-105)
--- NOTE | 2021-11-28 17:45 | PC.NURSE ---
PT. HAS BEEN TRANSFERRED TO [facility] ON MED/TELE VIA WC W/ ALL PERSONAL BELONGINGS AND PHONE. DENIES CP OR SOB UPON TRANSFER. VOICES NO C/O.
[2021-11-28 20:54] LABS: Glucose Point of Care 126 mg/dl (65-105)
[2021-11-28] MEDS: LOSARTAN POTASSIUM 25 MG TABLET PO (20:55)
[2021-11-28] MEDS: ROSUVASTATIN 10 MG TABLET 20 MG PO (20:55)
[2021-11-28] MEDS: TAMSULOSIN HCL 0.4 MG CAPSULE PO (20:55)
[2021-11-29 04:00] VITALS: PULSE 50
[2021-11-29 04:42] VITALS: BP 122/64; PULSE 55; RESP 18; TEMP 36.5; O2SAT 96
[2021-11-29 05:39] LABS: Anion Gap 10 mmol/L (8-16); Blood Urea Nitrogen 24 mg/dL (9-20); Calcium 9.9 mg/dL (8.4-10.2); Carbon Dioxide 25 mmol/L (22-30); Chloride 101 mmol/L (98-107); Estimated CRCL calculation 67 ml/min; Estimated Glomerular Filt Rate > 60; Glucose 128 mg/dL (65-110); Potassium 4.3 mmol/L (3.4-5.0); Sodium 136 mmol/L (137-145)
[2021-11-29 05:53] LABS: Hemoglobin A1C 6.9 % (<5.7)
[2021-11-29 07:42] LABS: Glucose Point of Care 136 mg/dl (65-105)
[2021-11-29 08:00] VITALS: PULSE 54
--- NOTE | 2021-11-29 08:46 | PM.PNCARD ---
Progress Note: A&P Additional Plan 71-year-old man with: Chest pain syndrome that is very atypical and not suggestive of myocardial ischemia. Given his history as detailed in the above notes he was obviously concerned and came into the hospital for rule out [place]. ACS has been ruled out as mentioned above. He is feeling better and in my opinion does not require catheterization in this setting. He can be discharged and ongoing follow-up is already scheduled in my office. Souleymane Cummings MD [facility] Subjective Date/time seen: Date of service:11/29/21 08:46 Interval history: Follow-up visit in this 71-year-old man with coronary artery disease previous emergency PCI to the LAD in the setting of an anterior wall infarction about a year and a half ago. Staged PCI to the right coronary artery a shortly after that emergency. Doing well since then. Admitted to the hospital yesterday with chest pain that is very atypical and not suggestive of myocardial ischemia. Electrocardiograms of course demonstrate is old anterior infarction as does his echocardiogram. Biomarkers are negative for ACS. Discussion with patient today that acute coronary syndrome has been ruled out and given the atypical nature of the symptoms I believe he can be discharged for ongoing follow-up in the office which is already scheduled. Exam Const: General: comfortable and no acute distress HENMT: Mouth: Yes moist mucous membranes Eyes: Sclera: sclerae normal Pupils: Equal, round and reactive pupils present Neck: Neck: supple and no JVD Resp: Effort & Inspection: normal respiratory effort Auscultation: clear to auscultation bilaterally Cardio: Rate: regular rate Rhythm: regular rhythm Other: No murmur no gallop no rub GI: GI Palp: Yes Soft to palpation Auscultation: normal bowel sounds Skin: General skin exam: normal color Neuro: Cognition (Neuro): normal cognition Extrem: General: normal to inspection Objective Data Vital Signs Vital Signs: Vital Signs - 24 hr 11/28/21 09:58 11/28/21 10:00 11/28/21 12:00 Temperature 36.6 C 36.6 C 36.7 C Pulse Rate 62 57 L 58 L Respiratory Rate 18 15 20 Blood Pressure 134/76 146/70 H 126/79 Pulse Oximetry 98 100 96 11/28/21 14:00 11/28/21 14:01 11/28/21 16:00 Temperature 36.8 C Pulse Rate 54 L 58 L 65 Respiratory Rate 16 Blood Pressure 129/77 Pulse Oximetry 96 11/28/21 19:16 11/28/21 20:00 11/28/21 20:46 Temperature 36.4 C L Pulse Rate 57 L 60 63 Respiratory Rate 18 Blood Pressure 132/74 Pulse Oximetry 96 11/28/21 20:54 11/29/21 04:00 11/29/21 04:42 Temperature 36.5 C Pulse Rate 86 50 L 55 L Respiratory Rate 18 Blood Pressure 122/64 Pulse Oximetry 96 Intake/Output Intake/Output: Intake & Output 11/26/21 11/27/21 11/28/21 11/29/21 23:59 23:59 23:59 23:59 Intake Total 600 400 Balance 600 400 Meds/Results Medications: Active Medications Generic Name Dose Route Start Last Admin Trade Name Freq PRN Reason Stop Dose Admin Aspirin 81 mg 11/29/21 08:00 Aspirin 81 Mg Chewable Tablet PO DAILY@0800 [facility] Dextrose 12.5 gm 11/28/21 11:06 Dextrose 50% 25 Gm/50 Ml Syringe IV PUSH PRN PRN Hypoglycemia Protocol Glucagon 1 mg 11/28/21 11:06 Glucagon For Inj 1 Mg Vial IM PRN PRN Hypoglycemia Protocol Glucose 15 gm 11/28/21 11:06 Glucose Oral Gel 15 Gm Of Glucse In 37.5 Gm Tube PO PRN PRN Hypoglycemia Protocol Dextrose 1,000 mls @ 100 mls/hr 11/28/21 11:06 Dextrose 5% 1,000 Ml IVPB PRN PRN Hypoglycemia Protocol Insulin Aspart 4 - 8 units 11/28/21 12:00 11/29/21 07:43 Insulin Aspart (*Bkc) 100 Units/Ml SUB-Q Not Given TIDWM ROMIE Protocol Losartan Potassium 25 mg 11/28/21 21:00 11/28/21 20:55 Losartan Potassium 25 Mg Tablet PO 25 mg HS ROMIE Administration Metformin HCl 500 mg 11/28/21 17:00 11/28/21 17:08 Metformin Hcl
[2021-11-29 09:25] VITALS: PULSE 78
[2021-11-29] MEDS: METOPROLOL TARTRATE 12.5 MG TABLET PO (09:25)
[2021-11-29] MEDS: metFORMIN HCL 500 MG TABLET PO (09:25)
[2021-11-29] MEDS: ASPIRIN 81 MG CHEWABLE TABLET PO (11:23)
--- NOTE | 2021-11-29 11:26 | PM.DS ---
DS: Admitting Diagnosis Discharge Date 11/29/21 Admitting Diagnosis Chest pain DS: Discharge Diagnosis Discharge Diagnosis (1) Chest pain: Code(s): R07.9 - Chest pain, unspecified Status: Acute (2) CAD (coronary artery disease): Code(s): I25.10 - Atherosclerotic heart disease of [place] coronary artery without angina pectoris Status: Acute (3) Type 2 diabetes mellitus: Onset Date: ~05/2020 Qualifiers: Diabetes mellitus longterm insulin use: with exterminator helper use Diabetes mellitus complication status: with hyperglycemia Qualified Code(s): E11.65 - Type 2 diabetes mellitus with hyperglycemia; Z79.4 - long term care administrator (current) use of insulin Code(s): E11.9 - Type 2 diabetes mellitus without complications Status: Acute (4) Essential hypertension: Onset Date: ~05/2020 Code(s): I10 - Essential (primary) hypertension Status: Acute (5) History of CVA in adulthood: Code(s): Z86.73 - Personal history of transient ischemic attack (TIA), and cerebral infarction without residual deficits Status: Acute (6) Hyperlipidemia: Onset Date: ~05/2020 Code(s): E78.5 - Hyperlipidemia, unspecified Status: Acute DS: Summary Hospital Course Reason for hospitalization: 71yo male with known CAD here for chest pain. 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 He was pushing carts in and out of the facility but no heavy lifting. On 11/26, patient ?did not feel great? and felt tired with a slight headache. No fever or chills. No chest pain, cough or shortness of breath at that time. Yesterday afternoon, patient developed left-sided chest pain that was positional that occurred at rest. It was not pleuritic. It felt different than the time he had his myocardial infarction. The pain is worse if he is lying on his left side or when he tries to sit up. There was no associated shortness of breath, nausea, diaphoresis or radiation of the pain. He states that feels like a ?pulled muscle?. No pedal edema. No paresthesias or neuropathic symptoms to the left side of chest. He has not had Zoster vaccine. he has a hx of CVA with mild residual left upper extremity weakness. Pain persisted and he presented to the emergency room for evaluation. In the emergency room, he was hemodynamically stable. BNP was essentially normal. LFTs are normal. CBC was normal. Troponin was negative x3. Lipase was normal. EKG showed normal sinus rhythm with evidence of anterior infarct with QS pattern V1 through V5. Chest x-ray was clear. Patient received aspirin in the emergency room. Cardiology was consulted. Echo was performed showing EF 35-40% with segmental wall motion abnormalities and diastolic dysfunction. Please see report for details. A1c 6.9. Home medications continued. He remained on telemetry. Overnight, he had mild chest pain recurrence but resolved with Tylenol. He feels better and was able to be discharged home on 11/29/21. Status at Discharge Cognitive/behavioral status at discharge: Stable Time Spent with Patient Time attestation: Total time spent providing and/or coordinating discharge services: 36 minutes Time spent: Greater than 30 minutes Exam Narrative: AF 97.7 122/64 78 18 96% ra Gen - NARD Chest - CTA bilaterally CV - RRR Abd - soft, obese Ext - no pedal edema Psych - normal mood and affect. Skin - warm and dry. DS: Data Data Completed and Pending Labs on day of discharge: Labs from last 24 hours 11/29/21 11/29/21 11/29/21 07:37 03:40 03:40 Sodium 136 L Potassium 4.3 Chloride 101 Carbon Dioxide 25 Anion Gap 10 BUN 24 H Creatinine 1.10 Estim Creat Clear Calc 67 Estimated GFR > 60 Glucose 128 H POC Capillary Glucose 136 H Hemoglobin A1c 6.9 H Calcium 9.9 Troponin I 11/28/21 11/28/21 11/28/21 20:
== END 2021-11-29 12:56 | disposition home or self-care (01) ==
LOC: ANHED 08:21 → ANHCPC 08:58 → ANH3MED 17:54
PROVIDERS: Emergency Medicine; Admitting Provider Internal Medicine; Emergency Provider Emergency Medicine; PCP Internal Medicine; Visit Provider Internal Medicine
DX: R07.9 Chest pain, unspecified (principal); I25.10 Atherosclerotic heart disease of native coronary artery without angina pectoris; I69.354 Hemiplegia and hemiparesis following cerebral infarction affecting left non-dominant side; I10 Essential (primary) hypertension; E11.65 Type 2 diabetes mellitus with hyperglycemia; E78.5 Hyperlipidemia, unspecified; I25.5 Ischemic cardiomyopathy; I25.2 Old myocardial infarction; M10.9 Gout, unspecified; N40.0 Benign prostatic hyperplasia without lower urinary tract symptoms; Z79.4 Long term (current) use of insulin; Z79.84 Long term (current) use of oral hypoglycemic drugs; Z79.82 Long term (current) use of aspirin; Z95.5 Presence of coronary angioplasty implant and graft
CPT/HCPCS: 36415; 71046; 80048; 80053; 82948; 83036; 83690; 84484; 85025; 85610; 85730; 93005; 96365; 96375; 99285; A9270; C8929; G0378; J0131; Q9957

== ENCOUNTER 2022-10-30 11:52 | Outpatient (CLI) | payer MEDICARE, MEDICAID, SELFPAY ==
[2022-10-30 12:40] LABS: Alanine Aminotransferase 24 U/L (6-50); Alkaline Phosphatase 70 U/L (38-126); Anion Gap 5 mmol/L (8-16); Aspartate Amino Transferase 25 U/L (17-59); Bilirubin,Total 0.7 mg/dL (0.2-1.3); Blood Urea Nitrogen 20 mg/dL (9-20); Calcium 9.8 mg/dL (8.4-10.2); Carbon Dioxide 26 mmol/L (22-30); Chloride 103 mmol/L (98-107); Cholesterol 147 mg/dL (0-200); Estimated Glomerular Filt Rate > 60; Glucose 148 mg/dL (65-110); HDL Direct 32 mg/dL; Potassium 4.4 mmol/L (3.4-5.0); Sodium 134 mmol/L (137-145); Triglycerides 124 mg/dL (<150); Uric Acid 6.6 mg/dL (3.5-8.5)
[2022-10-30 12:51] LABS: LDL Cholesterol Direct 81 mg/dL
[2022-10-30 14:40] LABS: Hemoglobin A1C 8.1 % (<5.7)
== END 2022-10-30 11:53 | disposition home or self-care (01) ==
LOC: ANHLAB 11:57
PROVIDERS: PCP Internal Medicine; Visit Provider Nurse Practitioner
DX: E78.5 Hyperlipidemia, unspecified (principal); M10.9 Gout, unspecified; E11.65 Type 2 diabetes mellitus with hyperglycemia; Z79.4 Long term (current) use of insulin
CPT/HCPCS: 36415; 80053; 80061; 83036; 84550

== ENCOUNTER 2025-07-30 17:22 | Emergency (ER) | payer MEDICARE, MEDICAID, SELFPAY ==
--- NOTE | ~2025-07-30 | XR_ITS ---
X-rays left tibia-fibula Indication: Wound, swelling Comparison: None Technique: 2 views left tibia fibula Findings/Impression: 1. No radiopaque foreign body. 2. No evidence of osteomyelitis. 3. No subcutaneous emphysema to suggest gas-forming infection. 4. No fracture or other acute bony abnormality. 5. Tiny calcified fragment between the proximal tibia and fibula, unclear etiology. Reviewed, dictated and finalized at location R.
[2025-07-30 17:31] VITALS: BP 143/71; PULSE 79; RESP 16; TEMP 36.7; O2SAT 99
[2025-07-30] MEDS: DOXYCYCLINE HYCLATE 100 MG TABLET PO (20:22)
[2025-07-30 20:24] VITALS: BP 163/86; PULSE 73; RESP 20; TEMP 36.6; O2SAT 96
--- NOTE | 2025-07-31 03:44 | ED.LOWEXIN ---
HPI - Extremity Injury (Lower) General Chief Complaint: Extremity Injury, Lower Stated Complaint: left leg injury Time Seen by Provider: 07/30/25 19:52 History of Present Illness HPI Narrative: Patient was carrying a cow head several days ago when he accidentally skimmed his left carey, causing a wound. Yesterday it had gotten more swollen and red and uncomfortable, today it all appears slightly better, his coworkers told him he needs to go to the ER immediately. He does have some pain to the leg, no fevers or chills Related Data Home Medications ?Medication ?Instructions ?Recorded ?Confirmed ?Last Taken ?Type aspirin 81 mg chewable tablet 81 mg PO DAILY 06/02/20 07/30/25 11/27/21 09:00 History metoprolol tartrate 25 mg tablet 12.5 mg PO BID 07/05/20 07/30/25 11/27/21 21:00 History lancets 33 gauge (OneTouch Delica 07/11/20 11/28/21 Unknown History Lancets) losartan 25 mg tablet 25 mg PO HS 11/28/21 07/30/25 11/26/21 History rosuvastatin 20 mg tablet 20 mg PO HS 11/28/21 07/30/25 11/27/21 21:00 History Allergies Allergy/AdvReac Type Severity Reaction Status Date / Time No Known Allergies Allergy Verified 07/30/25 17:33 Review of Systems Review of Systems: All systems reviewed & are unremarkable except as noted in HPI and below PMFSH Past Medical History Medical History Coronary artery disease (~05/2020) Drug-eluting stent to LAD on 06/02/2020. Subtotal RCA lesion noted on the same cath. CVA (cerebral vascular accident) Multiple right sided CVAs most recent April 2010 by MRI Essential hypertension (~05/2020) Gout Hyperlipidemia (~05/2020) Ischemic cardiomyopathy (~05/2020) Echo 06/03/20: EF 30-35% with Akinetic anterior wall and anteroseptal segments and [place] is dyskinetic. ST elevation (STEMI) myocardial infarction (06/02/20) Occluded LAD, status post drug-eluting stent. Type 2 diabetes mellitus (~05/2020) A1c 6.8 10/17/21 Surgical History Surgical History History of coronary artery stent placement (06/02/20) Drug-eluting stent to an occluded LAD on 06/02/[address] Cummings. Family History Family History Father Lung cancer Sibling Sarcoma Social History Social History Social History: The patient lives in his own home in [place]. 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 He is a lifelong nonsmoker and denies alcohol and drug abuse. He designates his 85-year-old mother as his surrogate decision maker and he wishes to be a full code. Smoking status: Never smoker Second hand tobacco smoke exposure: No Alcohol intake: never Substance use: never Substance use type: does not use Living arrangements: alone Gender identity (if verbalized by the patient): Male Sexual Orientation (if Verbalized by the Patient): Straight or Heterosexual Spiritual care concerns: No Exam Narrative: EXAMINATION OF ORGAN SYSTEMS/BODY AREAS: Constitutional: Vital signs per nursing GENERAL:[No acute distress, non-toxic appearing.] HEAD: Normal with no signs of head trauma. EYES: EOMI, conjunctiva normal ENT: Hearing grossly intact LUNGS: Nonlabored breathing. HEART: [Regular rate and rhythm] ABD: [Soft], [nontender to palpation] EXT: Normal range of motion SKIN: Erythematous area left anterior carey small ulcer, minimally tender to palpation, no crepitus NEURO: [Alert and oriented x 3. No gross focal sensory or strength deficits.] PSYCH: Normal affect Course Vital Signs Vital signs: Vital Signs Temperature 98.1 F 07/30/25 17:31 Pulse Rate 79 07/30/25 17:31 Respiratory Rate 16 07/30/25 17:31 Blood Pressure 143/71 H 07/30/25 17:31 Pulse Oximetry 99 07/30/25 17:31 Oxygen Delivery Room Air 07/30/25 17:31 Temperature 97.9 F 07/30/25 20:24 Pulse Rate 73 07/30/25 20:24 Respiratory Rate 20 07/30/25 20:24 Blood Pressure 163/86 H 07/30/25 20:24 Pulse Oximetry 96 07/30/25 20:24 Oxygen Delivery Room Air 07/30/25 17:31 MDM - Extremity Injury (Lower) MDM Narrative Medical decision making narrative: Patient was carrying a cow head several days ago when he accidentally skimmed his left carey, causing a wound. Yesterday it had gotten more swollen and red and uncomfortable, today it all appears slightly better, his coworkers told him he needs to go to the ER immediately. He does have some pain to the leg, no fevers or chills On exam there is a small area with a wound/ulcer, with some slight surrounding erythema, no fluctuance, no severe tenderness, x-ray does not show any obvious foreign body or fracture. Given my concern for infection I will start him on doxycycline, with strict return precautions and follow-up to PCP Discharge Plan Discharge Clinical Impression: Abrasion of leg with infection Patient Disposition: Home Condition: Stable Instructions: Antibiotic Form, Wound Infection (ED) Additional Instructions: Please take the antibiotics as prescribed and follow up for recheck with your doctor or with orthopedics; If the pain worsens, if the redness spreads, or you start having fevers or chills or anything else concerning, return to the ER immediately as you may need to be admitted for IV antibiotics. Patient Language: Dominican Prescriptions: New doxycycline hyclate 100 mg capsule 100 mg PO Q12H 7 Days Qty: 14 0RF No Action (DME) lancets [OneTouch Delica Lancets] 33 gauge misc See Rx Instructions .ROUTE .MEDSUPPLY Rx Instructions: Test blood sugar twice a day aspirin 81 mg Tablet,Chewable 81 mg PO DAILY metoprolol tartrate 25 mg tablet 12.5 mg PO BID Rx Instructions: take 1/2 tablet(12.5mg)PO twice daily tamsulosin 0.4 mg capsule 0.4 mg PO HS Qty: 90 4RF losartan 25 mg tablet 25 mg PO HS rosuvastatin 20 mg tablet 20 mg PO HS (DME) OneTouch Verio test strips Strip See Rx Instructions .ROUTE .MEDSUPPLY Qty: 100 2RF Rx Instructions: test blood sugar twice a day metformin 500 mg tablet 500 mg PO BID 30 Days Qty: 180 1RF Follow-up/Referrals: Diego Cartagena MD [Physician, Orthopedics] - 2 Days Augustin Jones DO [Primary Care Provider, Internal Medicine] - 2 Days
== END 2025-07-30 20:28 | disposition home or self-care (01) ==
LOC: ANHED 20:16
PROVIDERS: Emergency Provider Emergency Medicine; PCP Internal Medicine
DX: S80.812A Abrasion, left lower leg, initial encounter (principal); L08.9 Local infection of the skin and subcutaneous tissue, unspecified; W22.8XXA Striking against or struck by other objects, initial encounter
CPT/HCPCS: 73590; 87070; 87075; 87077; 87186; 99283; A9270